=== PATIENT | male | born 1980 | race Caucasian/White ===

== ENCOUNTER 2022-08-20 07:38 | Emergency (ER) | payer OTHER ==
--- NOTE | 2022-08-20 08:00 | ERPHSYRPT ---
- History of Present Illness Time Seen by Provider: 08/20/22 07:50 Source: patient Exam Limitations: no limitations Patient Subjective Stated Complaint: PT states "I was at work and I broke out into a sweat, I collapsed and my whole body hurt. My head is killing me and I just do not feel right." Triage Nursing Assessment: PT presented alert and oriented X 3, skin pwd. Pt ambulates with an upright steady gait, able to speak in clear full sentences pt in no apparent respiratory distress. Physician History: This is a 42-year-old white male patient who stated that yesterday approximately 2 PM he began feeling oddly during sexual intercourse. Later in the day his symptoms progressed to include generalized numbness and he "passed out" at work. Since that episode at work he has had a headache that is not resolved. He does not have neck pain. He continues to feel numb all over. He has not had any fever or chills or flulike symptoms. He denies using illicit drugs. He denies any prescription medication use. He has no known drug allergies. He has never had episodes like this in the past. He denies chest pain. He denies shortness of breath. The light hurts his eyes and so he is in the emergency department room with his eyes closed. He denies any head injury. Timing/Duration: yesterday Severity: moderate Character of Deficits: none Deficits: no difficulties Baseline/Normal Cognition: alert oriented x 3 Current Cognition: alert oriented x 3 Baseline Gait: walks w/o assistance Associated Symptoms: numbness/tingling in legs/feet (Generalized), other (Right sensitivity), No loss of consciousness, No seizures, No slurred speech Allergies/Adverse Reactions: No Known Drug Allergies Allergy (Verified 08/20/22 07:50) Home Medications: No Reportable Medications [No Reported Medications] 08/20/22 [History] Hx Tetanus, Diphtheria Vaccination/Date Given: No Hx Influenza Vaccination/Date Given: Yes Hx Pneumococcal Vaccination/Date Given: No Immunizations Up to Date: Yes Travel Risk - International Travel Have you traveled outside of the country in past 3 weeks: No - Coronavirus Screening Are you exhibiting any of the following symptoms?: Yes Symptoms: Headaches/Body Aches/Fatigue Close contact with a COVID-19 positive Pt in past 14-21 Days: No - Vaccine Status Have you recieved a Covid-19 vaccination: No - Review of Systems Constitutional: No Symptoms Eyes: Photophobia Ears, Nose, & Throat: No Symptoms Respiratory: No Symptoms Cardiac: No Symptoms Abdominal/Gastrointestinal: No Symptoms Genitourinary Symptoms: No Symptoms Musculoskeletal: No Symptoms Skin: No Symptoms Neurological: Headache, Parasthesia (Generalized) Endocrine: No Symptoms Hematologic/Lymphatic: No Symptoms Immunological/Allergic: No Symptoms All Other Systems: Reviewed and Negative - Past Medical History Pertinent Past Medical History: No - Past Surgical History Past Surgical History: Yes Other Surgical History: partial nephrectomy left kidney - Social History Smoking Status: Former smoker Exposure to second hand smoke: No Drug Use: none Patient Lives Alone: No - Nursing Vital Signs Nursing Vital Signs: Initial Vital Signs Temperature 97.8 F 08/20/22 07:44 Pulse Rate 92 H 08/20/22 07:44 Respiratory Rate 20 08/20/22 07:44 Blood Pressure 167/108 08/20/22 07:44 O2 Sat by Pulse Oximetry 98 08/20/22 07:44 Pain Scale Pain Intensity [Posterior 8 Generalized] Pain Intensity 5 - [place] Coma Scale Best Eye Response ([place]): (4) open spontaneously Best Verbal Response ([place]): (5) oriented Best Motor Response ([place]): (6) obeys commands [place] Total: 15 - Physical Exam General Appearance: mild distress, alert, anxiety Eye Exam: bilateral eye: normal inspection, PERRL, EOMI Ears, Nose, Throat Exam: normal ENT inspection, moist mucous membranes Neck Exam: normal inspection, non-tender, supple, full range of motion Respiratory: normal breath sounds, lungs clear, airway intact, No chest tenderness, No respiratory distress Cardiovascular: regular rate/rhythm, normal heart sounds, normal peripheral pulses Gastrointestinal: soft, normal bowel sounds, No tenderness Rectal Exam: not done Back Exam: normal inspection, normal range of motion, No CVA tenderness, No vertebral tenderness Extremity Exam: normal inspection, normal range of motion, pelvis stable Mental Status: alert, 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 There is no comparison twelve-lead EKG present) Ordered Tests: Active Orders 24 hr Category Date Time Status Marketing Intern STAT Care 08/20/22 08:00 Active Clean Catch Urine Specimen STAT Care 08/20/22 08:00 Active EKG-ER Only STAT Care 08/20/22 08:00 Active IV Insertion STAT Care 08/20/22 08:00 Active NPO (ED) STAT Care 08/20/22 08:00 Active Pulse Oximetry (ED) STAT Care 08/20/22 08:00 Active HEAD WITHOUT CONTRAST [CT] Stat Exams 08/20/22 08:00 Taken BLOOD CULTURE Stat Lab 08/20/22 08:50 Received CBC W DIFF Stat Lab 08/20/22 08:00 Completed CMP Stat Lab 08/20/22 08:00 Completed ETHYL ALCOHOL Stat Lab 08/20/22 08:01 Completed [place] Screen Stat Lab 08/20/22 08:30 Completed TROPONIN Q4H Lab 08/20/22 05:50 Completed TROPONIN Q4H Lab 08/20/22 14:15 Ordered TROPONIN Q4H Lab 08/20/22 18:15 Ordered TROPONIN Q4H Lab 08/20/22 22:15 Ordered UA W/RFX CULTURE Stat Lab 08/20/22 Results Urine Triage Profile Stat Lab 08/20/22 Completed Medication Summary Discontinued Medications Generic Name Dose Route Start Last Admin Trade Name Felicia PRN Reason Stop Dose Admin Acetaminophen 650 mg 08/20/22 08:59 08/20/22 09:00 Acetaminophen 325 Mg Tablet PO 08/20/22 09:00 650 mg STAT STA Administration Acetaminophen Confirm 08/20/22 08:59 Acetaminophen 325 Mg Tablet Administered 08/20/22 09:00 Dose 650 mg .ROUTE .STK-MED ONE Methylprednisolone Sodium 0 mg 08/20/22 10:37 08/20/22 10:47 Succinate 125 mg/ Sterile IV 08/20/22 10:38 125 mg Water 2 ml STAT ONE Administration Diphenhydramine HCl 25 mg 08/20/22 10:39 08/20/22 10:48 Diphenhydramine Hcl 50 Mg/Ml Vial IV 08/20/22 10:40 25 mg STAT ONE Administration Diphenhydramine HCl Confirm 08/20/22 10:46 Diphenhydramine Hcl 50 Mg/Ml Vial Administered 08/20/22 10:47 Dose 50 mg .ROUTE .STK-MED ONE Methylprednisolone Sodium Succinate Confirm 08/20/22 10:46 Methylprednis Sod Succ 125 Mg/2 Ml Vial Administered 08/20/22 10:47 Dose 125 mg .ROUTE .STK-MED ONE Morphine Sulfate 4 mg 08/20/22 09:03 08/20/22 09:14 Morphine Sulfate 4 Mg/Ml Injection IV 08/20/22 09:04 4 mg STAT ONE Administration Morphine Sulfate Confirm 08/20/22 09:13 Morphine Sulfate 4 Mg/Ml Injection Administered 08/20/22 09:14 Dose 4 mg .ROUTE .STK-MED ONE Morphine Sulfate 2 mg 08/20/22 10:36 08/20/22 10:48 Morphine Sulfate 2 Mg/Ml Inj IV 08/20/22 10:37 2 mg STAT ONE Administration Morphine Sulfate Confirm 08/20/22 10:46 Morphine Sulfate 2 Mg/Ml Inj Administered 08/20/22 10:47 Dose 2 mg .ROUTE .STK-MED ONE Ondansetron HCl 4 mg 08/20/22 09:03 08/20/22 09:14 Ondansetron Hcl 4 Mg/2 Ml Vial IV 08/20/22 09:04 4 mg STAT ONE Administration Ondansetron HCl Confirm 08/20/22 09:13 Ondansetron Hcl 4 Mg/2 Ml Vial Administered 08/20/22 09:14 Dose 4 mg .ROUTE .STK-MED ONE Sterile Water Confirm 08/20/22 10:46 Water For Injection,Sterile 10 Ml Vial Administered 08/20/22 10:47 Dose 10 ml IJ .STK-MED ONE Lab/Rad Data: Laboratory Result Diagrams 08/20/22 08:00 08/20/22 08:00 Laboratory Results 08/20/22 08/20/22 08/20/22 Range/Units Unknown Unknown Unknown WBC (4.0-10.5) x10^3/uL RBC (4.1-5.6) x10^6/uL Hgb (12.5-18.0) g/dL Hct (42-50) % MCV (78-100) fL MCH (26-32) pg MCHC (32-36) g/dL RDW (11.5-14.0) % Plt Count (150-450) x10^3/uL MPV (7.5-11.0) fL Gran % (36.0-66.0) % Immature Gran % (Auto) (0.00-0.4) % Nucleat RBC Rel Count (0.00-0.1) % Eos # (Auto) (0-0.5) x10^3/uL Immature Gran # (Auto) (0.00-0.03) x10^3u/L Absolute Lymphs (auto) (1.0-4.6) x10^3/uL Absolute Monos (auto) (0.0-1.3) x10^3/uL Absolute Nucleated RBC (0.00-0.01) x10^3u/L Lymphocytes % (24.0-44.0) % Monocytes % (0.0-12.0) % Eosinophils % (0.00-5.0) % Basophils % (0.0-0.4) % Absolute Granulocytes (1.4-6.9) x10^3/uL Basophils # (0-0.4) x10^3/uL Sodium (137-145) mmol/L Potassium (3.5-5.1) mmol/L Chloride (98-107) mmol/L Carbon Dioxide (22-30) mmol/L Anion Gap (5-15) MEQ/L BUN (9-20) mg/dL Creatinine (0.66-1.25) mg/dL Estimated GFR ML/MIN Glucose (74-106) mg/dL Calcium (8.4-10.2) mg/dL Total Bilirubin (0.2-1.3) mg/dL AST (17-59) U/L ALT (0-50) U/L Alkaline Phosphatase (38-126) U/L Troponin I (0.000-0.034) ng/mL Serum Total Protein (6.3-8.2) g/dL Albumin (3.5-5.0) g/dL Urinalys Dipstick Clnc Pending Urine Color YELLOW (YELLOW) Urine Appearance CLEAR (CLEAR) Urine pH 5.5 (5-6) Ur Specific [place] 1.020 (1.005-1.025) POC Urine Protein Conf NEGATIVE (Negative) Urine Ketones NEGATIVE (NEGATIVE) Urine Nitrite NEGATIVE (NEGATIVE) Urine Bilirubin NEGATIVE (NEGATIVE) Urine Urobilinogen NORMAL (0-1) mg/dL Urine Leukocytes NEGATIVE (NEGATIVE) Urine WBC (Auto) NONE SEEN (0-5) /HPF Urine RBC (Auto) NONE (0-2) /HPF U Epithel Cells (Auto) RARE (FEW) /HPF Urine Bacteria (Auto) NONE SEEN (NEGATIVE) /HPF Urine RBC NEGATIVE (0-5) Alfonso/ul Urine Mucus (Auto) SLIGHT (NEGATIVE) /HPF Ur Culture Indicated? NO Urine Glucose NEGATIVE (NEGATIVE) mg/dL Urine Opiates Level NEGATIVE (NEGATIVE) Ur Methadone NEGATIVE (NEGATIVE) Urine Barbiturates NEGATIVE (NEGATIVE) Ur Phencyclidine (PCP) NEGATIVE (NEGATIVE) Urine Amphetamine NEGATIVE (NEGATIVE) U Benzodiazepine Level NEGATIVE (NEGATIVE) Urine Cocaine NEGATIVE (NEGATIVE) Urine Marijuana (THC) NEGATIVE (NEGATIVE) Ethyl Alcohol (0-10) mg/dL Monoscreen (Negative) Influenza Type A Ag NEGATIVE (NEGATIVE) Influenza Type B Ag NEGATIVE (NEGATIVE) RSV (PCR) NEGATIVE (Negative) SARS-CoV-2 (PCR) NEGATIVE (NEGATIVE) 08/20/22 08/20/22 08/20/22 Range/Units 08:30 08:01 08:00 WBC (4.0-10.5) x10^3/uL RBC (4.1-5.6) x10^6/uL Hgb (12.5-18.0) g/dL Hct (42-50) % MCV (78-100) fL MCH (26-32) pg MCHC (32-36) g/dL RDW (11.5-14.0) % Plt Count (150-450) x10^3/uL MPV (7.5-11.0) fL Gran % (36.0-66.0) % Immature Gran % (Auto) (0.00-0.4) % Nucleat RBC Rel Count (0.00-0.1) % Eos # (Auto) (0-0.5) x10^3/uL Immature Gran # (Auto) (0.00-0.03) x10^3u/L Absolute Lymphs (auto) (1.0-4.6) x10^3/uL Absolute Monos (auto) (0.0-1.3) x10^3/uL Absolute Nucleated RBC (0.00-0.01) x10^3u/L Lymphocytes % (24.0-44.0) % Monocytes % (0.0-12.0) % Eosinophils % (0.00-5.0) % Basophils % (0.0-0.4) % Absolute Granulocytes (1.4-6.9) x10^3/uL Basophils # (0-0.4) x10^3/uL Sodium 139 (137-145) mmol/L Potassium 4.3 (3.5-5.1) mmol/L Chloride 103 (98-107) mmol/L Carbon Dioxide 27 (22-30) mmol/L Anion Gap 13.2 (5-15) MEQ/L BUN 12 (9-20) mg/dL Creatinine 0.93 (0.66-1.25) mg/dL Estimated GFR > 60.0 ML/MIN Glucose 99 (74-106) mg/dL Calcium 9.3 (8.4-10.2) mg/dL Total Bilirubin 1.20 (0.2-1.3) mg/dL AST 61 H (17-59) U/L ALT 91 H (0-50) U/L Alkaline Phosphatase 66 (38-126) U/L Troponin I (0.000-0.034) ng/mL Serum Total Protein 8.2 (6.3-8.2) g/dL Albumin 4.9 (3.5-5.0) g/dL Urinalys Dipstick Clnc Urine Color (YELLOW) Urine Appearance (CLEAR) Urine pH (5-6) Ur Specific [place] (1.005-1.025) POC Urine Protein Conf (Negative) Urine Ketones (NEGATIVE) Urine Nitrite (NEGATIVE) Urine Bilirubin (NEGATIVE) Urine Urobilinogen (0-1) mg/dL Urine Leukocytes (NEGATIVE) Urine WBC (Auto) (0-5) /HPF Urine RBC (Auto) (0-2) /HPF U Epithel Cells (Auto) (FEW) /HPF Urine Bacteria (Auto) (NEGATIVE) /HPF Urine RBC (0-5) Alfonso/ul Urine Mucus (Auto) (NEGATIVE) /HPF Ur Culture Indicated? Urine Glucose (NEGATIVE) mg/dL Urine Opiates Level (NEGATIVE) Ur Methadone (NEGATIVE) Urine Barbiturates (NEGATIVE) Ur Phencyclidine (PCP) (NEGATIVE) Urine Amphetamine (NEGATIVE) U Benzodiazepine Level (NEGATIVE) Urine Cocaine (NEGATIVE) Urine Marijuana (THC) (NEGATIVE) Ethyl Alcohol < 10 (0-10) mg/dL Monoscreen NEGATIVE (Negative) Influenza Type A Ag (NEGATIVE) Influenza Type B Ag (NEGATIVE) RSV (PCR) (Negative) SARS-CoV-2 (PCR) (NEGATIVE) 08/20/22 08/20/22 Range/Units 08:00 05:50 WBC 8.2 (4.0-10.5) x10^3/uL RBC 5.41 (4.1-5.6) x10^6/uL Hgb 17.1 (12.5-18.0) g/dL Hct 50.8 H (42-50) % MCV 93.9 (78-100) fL MCH 31.6 (26-32) pg MCHC 33.7 (32-36) g/dL RDW 11.9 (11.5-14.0) % Plt Count 297 (150-450) x10^3/uL MPV 10.5 (7.5-11.0) fL Gran % 59.2 (36.0-66.0) % Immature Gran % (Auto) 0.2 (0.00-0.4) % Nucleat RBC Rel Count 0.0 (0.00-0.1) % Eos # (Auto) 0.25 (0-0.5) x10^3/uL Immature Gran # (Auto) 0.02 (0.00-0.03) x10^3u/L Absolute Lymphs (auto) 2.17 (1.0-4.6) x10^3/uL Absolute Monos (auto) 0.86 (0.0-1.3) x10^3/uL Absolute Nucleated RBC 0.00 (0.00-0.01) x10^3u/L Lymphocytes % 26.6 (24.0-44.0) % Monocytes % 10.5 (0.0-12.0) % Eosinophils % 3.1 (0.00-5.0) % Basophils % 0.4 (0.0-0.4) % Absolute Granulocytes 4.84 (1.4-6.9) x10^3/uL Basophils # 0.03 (0-0.4) x10^3/uL Sodium (137-145) mmol/L Potassium (3.5-5.1) mmol/L Chloride (98-107) mmol/L Carbon Dioxide (22-30) mmol/L Anion Gap (5-15) MEQ/L BUN (9-20) mg/dL Creatinine (0.66-1.25) mg/dL Estimated GFR ML/MIN Glucose (74-106) mg/dL Calcium (8.4-10.2) mg/dL Total Bilirubin (0.2-1.3) mg/dL AST (17-59) U/L ALT (0-50) U/L Alkaline Phosphatase (38-126) U/L Troponin I < 0.012 (0.000-0.034) ng/mL Serum Total Protein (6.3-8.2) g/dL Albumin (3.5-5.0) g/dL Urinalys Dipstick Clnc Urine Color (YELLOW) Urine Appearance (CLEAR) Urine pH (5-6) Ur Specific [place] (1.005-1.025) POC Urine Protein Conf (Negative) Urine Ketones (NEGATIVE) Urine Nitrite (NEGATIVE) Urine Bilirubin (NEGATIVE) Urine Urobilinogen (0-1) mg/dL Urine Leukocytes (NEGATIVE) Urine WBC (Auto) (0-5) /HPF Urine RBC (Auto) (0-2) /HPF U Epithel Cells (Auto) (FEW) /HPF Urine Bacteria (Auto) (NEGATIVE) /HPF Urine RBC (0-5) Alfonso/ul Urine Mucus (Auto) (NEGATIVE) /HPF Ur Culture Indicated? Urine Glucose (NEGATIVE) mg/dL Urine Opiates Level (NEGATIVE) Ur Methadone (NEGATIVE) Urine Barbiturates (NEGATIVE) Ur Phencyclidine (PCP) (NEGATIVE) Urine Amphetamine (NEGATIVE) U Benzodiazepine Level (NEGATIVE) Urine Cocaine (NEGATIVE) Urine Marijuana (THC) (NEGATIVE) Ethyl Alcohol (0-10) mg/dL Monoscreen (Negative) Influenza Type A Ag (NEGATIVE) Influenza Type B Ag (NEGATIVE) RSV (PCR) (Negative) SARS-CoV-2 (PCR) (NEGATIVE) - Progress Progress: improved, pain not gone completely Progress Note: 08/20/22 10:21 CAT scan of the head without contrast shows no evidence of acute intracranial abnormality. Medical decision making: This patient presents with headache and states that his headache has improved but still present. There is no evidence of any acute intracranial abnormality on the CAT scan of the head without contrast. The remainder of his work-up, with the exception of mild elevation of the transaminases on his liver enzyme studies, is negative for any acute, emergent process. I will provide him with another dose of pain medicine. Patient is afebrile and there is no evidence of any acute infectious process. 08/20/22 11:23 Medical decision making: I did review this patient with Dr. Huan Gastelum. The patient is neurologically intact. After the infusion of intravenous steroid and Benadryl he states his headache is better but is slightly present. He has no chest pain. He is not short of breath. He is afebrile. He is white count is normal and the left shift is normal. I do not feel the patient needs an MRI of the brain. I do not feel this patient needs a lumbar puncture. Based on the information provided Dr. Gastelum he agrees. I will discharge the patient to home and he is to return to emergency department if symptoms recur or worsen. Even if he is feeling well, he is to follow-up with Dr. Mcgovern in his office on 08/22/2022. Counseled pt/family regarding: lab results, diagnosis, need for follow-up, rad results - Departure Departure Disposition: Home Clinical Impression: Migraine headache Condition: Stable Critical Care Time: No Referrals: SHELLIE MCGOVERN MD [Primary Care Provider] - Follow up/PCP as directed Additional Instructions: Drink plenty of fluids. Rest over the weekend. Do not exert yourself physically. Call Dr. Mcgovern's office on 08/22/2022 to make an appointment for further evaluation management. Return to the emergency department if symptoms recur or worsen. May take a daily baby aspirin. May use Tylenol, ibuprofen and Benadryl for headache control at home.
[2022-08-20 08:25] LABS: Epithelial Cells RARE /HPF (FEW); Mucus SLIGHT /HPF (NEGATIVE)
[2022-08-20 08:26] LABS: Appearance CLEAR (CLEAR); Bacteria NONE SEEN /HPF (NEGATIVE); Bilirubin NEGATIVE (NEGATIVE); Glucose NEGATIVE (NEGATIVE); Ketones NEGATIVE (NEGATIVE); Nitrite NEGATIVE (NEGATIVE); Ph 5.5 (5-6); Protein,Urine Dip NEGATIVE (Negative); RBC NEGATIVE Ery/ul (0-5); Urine Cultured Indicated? NO; Urobilinogen NORMAL mg/dL (0-1); WBC NONE SEEN /HPF (0-5)
[2022-08-20 08:28] LABS: Barbiturate,Urine NEGATIVE (NEGATIVE); Benzodiazepine,Urine NEGATIVE (NEGATIVE); Cocaine,Urine NEGATIVE (NEGATIVE); Methadone,Urine NEGATIVE (NEGATIVE); PCP,Urine NEGATIVE (NEGATIVE); THC,Urine NEGATIVE (NEGATIVE)
[2022-08-20 08:31] LABS: Absolute Neutrophil Ct (ANC) 4.84 x10^3/uL (1.4-6.9); Basophil (Absolute #) 0.03 x10^3/uL (0-0.4); Eosinophil % 3.1 % (0.00-5.0); Eosinophil (Absolute #) 0.25 x10^3/uL (0-0.5); Hematocrit 50.8 % (42-50); Hemoglobin 17.1 g/dL (12.5-18.0); Lymphocyte (Absolute #) 2.17 x10^3/uL (1.0-4.6); Lymphocytes % 26.6 % (24.0-44.0); Mean Cell Volume 93.9 fL (78-100); Mean Corpuscular Hemoglobin 31.6 pg (26-32); Mean Corpuscular Hgb Concent. 33.7 g/dL (32-36); Mean Platelet Volume 10.5 fL (7.5-11.0); Monocyte (Absolute #) 0.86 x10^3/uL (0.0-1.3); Monocytes % 10.5 % (0.0-12.0); Neutrophil % 59.2 % (36.0-66.0); Platelet Count 297 x10^3/uL (150-450); Red Blood Count 5.41 x10^6/uL (4.1-5.6); Red Cell Distribution Width 11.9 % (11.5-14.0); White Blood Count 8.2 x10^3/uL (4.0-10.5)
[2022-08-20 08:33] LABS: Amphetamine,Urine NEGATIVE (NEGATIVE); Opiate,Urine NEGATIVE (NEGATIVE)
[2022-08-20 08:47] LABS: ALBUMIN 4.9 g/dL (3.5-5.0); ALKALINE PHOSPHATASE 66 U/L (38-126); ANION GAP 13.2 MEQ/L (5-15); BLOOD UREA NITROGEN 12 mg/dL (9-20); CHLORIDE 103 mmol/L (98-107); Calcium 9.3 mg/dL (8.4-10.2); Carbon Dioxide 27 mmol/L (22-30); Creatinine 1 0.93 mg/dL (0.66-1.25); EST GLOMERULAR FILTRATION RATE > 60.0 ML/MIN; Glucose 99 mg/dL (74-106); Potassium 4.3 mmol/L (3.5-5.1); SGOT/AST 61 U/L (17-59); SGPT/ALT 91 U/L (0-50); SODIUM 139 mmol/L (137-145); Total Protein 8.2 g/dL (6.3-8.2)
[2022-08-20] MEDS ORDERED: TYLENOL 325 MG ONE (08:59)
[2022-08-20] MEDS ORDERED: TYLENOL 325 MG PO STA (08:59)
[2022-08-20] MEDS ORDERED: Zofran 4 MG/2 ML VIAL IV ONE (09:03)
[2022-08-20] MEDS ORDERED: MORPHINE SULFATE 4 MG INJ IV ONE (09:03)
[2022-08-20] MEDS ORDERED: MORPHINE SULFATE 4 MG INJ ONE (09:13)
[2022-08-20] MEDS ORDERED: Zofran 4 MG/2 ML VIAL ONE (09:13)
[2022-08-20 09:25] LABS: INFLUENZA A NEGATIVE (NEGATIVE); INFLUENZA B NEGATIVE (NEGATIVE); RESPIRATORY SYNCTIAL VIRUS NEGATIVE (Negative); SARS-CoV-2 Xpert Express NEGATIVE (NEGATIVE)
[2022-08-20] MEDS ORDERED: MORPHINE SULFATE 2 MG INJ IV ONE (10:36)
[2022-08-20] MEDS ORDERED: solu-MEDROL 125 MG, Sterile H2O 10 ml 2 ML IV ONE ×2 (10:37)
[2022-08-20] MEDS ORDERED: BENADRYL 50 MG/ML IV ONE (10:39)
[2022-08-20] MEDS ORDERED: solu-MEDROL ONE (10:46)
[2022-08-20] MEDS ORDERED: BENADRYL 50 MG/ML ONE (10:46)
[2022-08-20] MEDS ORDERED: Sterile H2O 10 ml IJ ONE (10:46)
[2022-08-20] MEDS ORDERED: MORPHINE SULFATE 2 MG INJ ONE (10:46)
[2022-08-20 11:30] VITALS: BP 123/99; PULSE 66; O2SAT 94
[2022-08-20 18:13] LABS: Dipstick done @ ? MAIN LAB
--- NOTE | 2022-08-20 19:58 | XRAY ---
Indication: Severe headache. No known injury. Multiple contiguous axial images obtained through the head without contrast. Comparison: None Normal appearing brain parenchyma, ventricles, and bony calvarium. Visualized paranasal sinuses and mastoid air cells are clear. Impression: Normal CT head without contrast exam. Comment: Preliminary interpretation made by [facility]. No critical discrepancy.
== END 2022-08-20 11:39 | disposition home or self-care (01) ==
LOC: ED 07:38
DX: G43.909 Migraine, unspecified, not intractable, without status migrainosus (principal); R20.0 Anesthesia of skin; H53.143 Visual discomfort, bilateral; Z28.310 Unvaccinated for COVID-19
CPT/HCPCS: 0241U; 36415; 70450; 80053; 80307; 81015; 84484; 85025; 86308; 87040; 93005; 93041; 94760; 96374; 96375; 99284; J1200; J2270; J2405; J2930; A9270-GY; G0480

== ENCOUNTER 2023-06-18 21:55 | Emergency (ER) | payer OTHER ==
[2023-06-18] MEDS ORDERED: Hydromorphone 1 mg/ml Injection SQ ONE ×2 (22:13→23:42)
[2023-06-18] MEDS ORDERED: TORAdol 30 mg Injection IM ONE (22:13)
[2023-06-18 22:19] VITALS: RESP 18; TEMP 98.2
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
[2023-06-18] MEDS ORDERED: Hydromorphone 1 mg/ml Injection ONE (22:32)
[2023-06-18] MEDS ORDERED: TORAdol 30 mg Injection ONE (22:32)
[2023-06-18 23:50] VITALS: O2SAT 97
[2023-06-19] MEDS ORDERED: Hydromorphone 1 mg/ml Injection ONE (00:37)
[2023-06-19 00:48] VITALS: BP 150/101; PULSE 86
--- NOTE | 2023-06-19 08:46 | XRAY ---
Indication: Pain following injury. Comparison: None 3 view left knee demonstrates minimal medial joint space narrowing, tiny spurring patella/tibial tuberosity, and tiny medial condyle bone island. No other bony, articular, or soft tissue abnormalities.
== END 2023-06-19 00:51 | disposition home or self-care (01) ==
LOC: ED 21:55
DX: S83.412A Sprain of medial collateral ligament of left knee, initial encounter (principal); V86.56XA Driver of dirt bike or motor/cross bike injured in nontraffic accident, initial encounter; R03.0 Elevated blood-pressure reading, without diagnosis of hypertension; Z28.310 Unvaccinated for COVID-19; Z79.891 Long term (current) use of opiate analgesic
CPT/HCPCS: 73562; 96372; 99283; J1170; J1885

== ENCOUNTER 2024-03-20 12:40 | Emergency (ER) | payer OTHER ==
[2024-03-20 13:01] VITALS: TEMP 98.7
[2024-03-20] MEDS ORDERED: Hydromorphone 1 mg/ml Injection ONE (13:24)
[2024-03-20] MEDS: Hydromorphone 1 mg/ml Injection IM ONE (13:26)
[2024-03-20] MEDS ORDERED: EMLA Cream 5 GM TP ONE ×2 (13:56→16:22)
--- NOTE | 2024-03-20 13:57 | XRAY ---
Indication: Foreign body. Comparison: None 3 projections penis negative for radiopaque foreign body or emphysema.
[2024-03-20] MEDS: EMLA Cream 5 GM TP ONE ×2 (14:04→16:23)
[2024-03-20] MEDS ORDERED: TORAdol 30 mg Injection ONE (14:09)
[2024-03-20] MEDS ORDERED: XYLOCAINE 1% HCL 20 ML MDV ONE (14:10)
[2024-03-20] MEDS ORDERED: Rocephin 1000 MG INJ ONE (14:10)
[2024-03-20] MEDS: Rocephin 1000 MG INJ IM ONE (14:13)
[2024-03-20] MEDS: TORAdol 30 mg Injection IM ONE (14:14)
--- NOTE | 2024-03-20 14:57 | XRAY ---
Indication: Foreign body. Targeted soft tissue ultrasound over penis is negative for focal solid/cystic mass or abnormal fluid collection.
[2024-03-20 15:48] VITALS: BP 146/85; PULSE 62; RESP 18; O2SAT 98
--- NOTE | 2024-03-20 15:57 | ERPHSYRPT ---
- History of Present Illness Time Seen by Provider: 03/20/24 13:00 Source: patient Exam Limitations: no limitations Patient Subjective Stated Complaint: Penile pain Triage Nursing Assessment: Patient ambulated back to ED and transferred self to bed. Patient A+O X 3. Patient's skin pink, warm and dry. Patient states yesterday he started having itching to the right side of the shaft of his penis. Today he stated there was a small pustule and when he messed with it he noticed a fine strand of an object sticking out. Patient states he attempted to pull it out, but it is very painful. Patient complains of pain 08/08. Physician History: Patient is a 44-year-old white male who developed an itch on the right side of his penis and when he scratched the area he noted what appeared to be a small pustule or pimple. When he put pressure on that and tried to pull it off it came off and there was a strand of tissue that came from the wound for distance of approximately an inch at that point it stopped coming from the wound and caused a pulling sensation in the more proximal part of the penis and great pain. Timing/Duration: today Activites at Onset: none Quality: sharpness, throbbing Onset Location: other (Right side of the shaft of the penis) Pain Radiation: none Severity of Pain-Max: moderate Severity of Pain-Current: moderate Modifying Factors: Improves With: urinating Prior abdominal problems: none Allergies/Adverse Reactions: No Known Drug Allergies Allergy (Verified 03/20/24 12:53) Hx Tetanus, Diphtheria Vaccination/Date Given: Yes Hx Influenza Vaccination/Date Given: Yes Hx Pneumococcal Vaccination/Date Given: No Immunizations Up to Date: Yes Travel Risk - International Travel Have you traveled outside of the country in past 3 weeks: No - Emerging Infectious Disease Are you exhibiting symptoms associated with any current EIDs: No - Past Medical History Pertinent Past Medical History: No Neurological History: No Pertinent History ENT History: No Pertinent History Cardiac History: Hypertension Respiratory History: No Pertinent History Endocrine Medical History: Other Musculoskeletal History: Other GI Medical History: No Pertinent History History: Kidney Cancer Psycho-Social History: No Pertinent History Male Reproductive Disorders: No Pertinent History Other Medical History: STAGE 2 RENAL CELL CA WITH PARTIAL NEPHRECTOMY 13 YEARS AGO. NO CHEMO OR RADIATION - Past Surgical History Past Surgical History: Yes Neuro Surgical History: No Pertinent History Cardiac: No Pertinent History Respiratory: No Pertinent History Gastrointestinal: No Pertinent History Genitourinary: Kidney Surgery Musculoskeletal: No Pertinent History Male Surgical History: No Pertinent History Other Surgical History: partial nephrectomy left kidney - Social History Smoking Status: Former smoker Exposure to second hand smoke: No Drug Use: none Patient Lives Alone: No - Review of Systems Constitutional: No Fever, No Chills Eyes: No Symptoms Ears, Nose, & Throat: No Symptoms Respiratory: No Cough, No Dyspnea Cardiac: No Chest Pain, No Edema, No Syncope Abdominal/Gastrointestinal: No Abdominal Pain, No Nausea, No Vomiting, No Diarrhea Genitourinary Symptoms: Other (Right side of the penis has a small area of skin disruption and a tissue like strand which Protrudes from the wound.), No Dysuria Musculoskeletal: No Back Pain, No Neck Pain Skin: No Rash Neurological: No Dizziness, No Focal Weakness, No Sensory Changes Psychological: No Symptoms Endocrine: No Symptoms All Other Systems: Reviewed and Negative - Nursing Vital Signs Nursing Vital Signs: Initial Vital Signs Temperature 98.7 F 03/20/24 12:57 Pulse Rate 70 03/20/24 12:57 Respiratory Rate 20 03/20/24 12:57 Blood Pressure 163/96 03/20/24 12:57 O2 Sat by Pulse Oximetry 97 03/20/24 12:57 Pain Scale Pain Intensity 0 - Physical Exam General Appearance: mild distress, alert Eye Exam: PERRL/EOMI Ears, Nose, Throat Exam: pharynx normal, moist mucous membranes Neck Exam: normal inspection, supple Respiratory Exam: normal breath sounds, lungs clear Cardiovascular Exam: regular rate/rhythm, No edema Gastrointestinal/Abdomen Exam: soft, No tenderness Male Genital Exam: lesions (Right side of the penis shows a small area where there is been a pustular like lesion pulled off and when removed from the area of brought with her today's strand of tissue.) Back Exam: normal inspection, No CVA tenderness Extremity Exam: normal inspection, normal range of motion, No pedal edema Neurologic Exam: alert, oriented x 3, cooperative, sensation nml, No motor deficits Skin Exam: normal color, warm, dry, No rash SpO2 Interpretation: normal SpO2: 98 O2 Delivery: Room Air - Course Nursing assessment & vital signs reviewed: Yes - Radiology Exams Pelvis X-ray Interpretation: Reviewed by me, Other (No abnormality noted) - Radiology Ultrasound Exam Pelvis Ultrasound: Other Ordered Tests: Active Orders 24 hr Category Date Time Status EXTREMITY NON VASCULAR [US] Stat Exams 03/20/24 13:58 Completed PELVIS (1 OR 2 VIEWS) Stat Exams 03/20/24 13:16 Completed Medication Summary Discontinued Medications Generic Name Dose Route Start Last Admin Trade Name Felicia PRN Reason Stop Dose Admin Ceftriaxone Sodium 1,000 mg 03/20/24 14:04 03/20/24 14:13 Ceftriaxone Sodium 1000 Mg Inj Vial IM 03/20/24 14:05 1,000 mg STAT ONE Administration Ceftriaxone Sodium Confirm 03/20/24 14:10 Ceftriaxone Sodium 1000 Mg Inj Vial Administered 03/20/24 14:11 Dose 1,000 mg .ROUTE .STK-MED ONE Hydromorphone HCl 1 mg 03/20/24 13:22 03/20/24 13:26 Hydromorphone 1 Mg/1ml Inj IM 03/20/24 13:23 1 mg STAT ONE Administration Hydromorphone HCl Confirm 03/20/24 13:24 Hydromorphone 1 Mg/1ml Inj Administered 03/20/24 13:25 Dose 1 mg .ROUTE .STK-MED ONE Ketorolac Tromethamine 60 mg 03/20/24 14:04 03/20/24 14:14 Ketorolac Tromethamine 30 Mg/Ml Inj IM 03/20/24 14:05 60 mg STAT ONE Administration Ketorolac Tromethamine Confirm 03/20/24 14:09 Ketorolac Tromethamine 30 Mg/Ml Inj Administered 03/20/24 14:10 Dose 60 mg .ROUTE .STK-MED ONE Lidocaine HCl Confirm 03/20/24 14:10 Lidocaine Hcl 1% 20 Ml Mdv 20 Ml Ml Administered 03/20/24 14:11 Dose 3 ml .ROUTE .STK-MED ONE Lidocaine/Prilocaine Confirm 03/20/24 13:56 Lidocaine/Prilocaine 5 Gm 5 Gm Tube Administered 03/20/24 13:57 Dose 5 gm TP .STK-MED ONE Lidocaine/Prilocaine 2.5 gm 03/20/24 13:58 03/20/24 14:04 Lidocaine/Prilocaine 5 Gm 5 Gm Tube TP 03/20/24 13:59 2.5 gm STAT ONE Administration - Progress Progress: unchanged Progress Note: 03/20/24 15:57 Discussed the situation with the midlevel of . [facility] Arrangements were worried for an office visit tomorrow at 1115. Medical Desision Making - Independent Historian Additional History obtained from: Spouse - Discussion of managment Care discussed with:: specialist (Urology office [facility]) - Diagnostic Testing Diagnostic test were ordered, analyzed, and reviewed by me: Yes Radiological Interpretation: Reviewed by me - Departure Departure Disposition: Home Clinical Impression: Penile cyst Condition: Stable Critical Care Time: No Referrals: AKBAR CHRISTIAN, [employer] [Primary Care Provider] - Follow up/PCP as directed Instructions: Epidermal Cyst
[2024-03-20] MEDS ORDERED: NORCO 5/325 MG ONE (16:13)
[2024-03-20] MEDS: NORCO 5/325 MG PO ONE (16:19)
== END 2024-03-20 16:30 | disposition home or self-care (01) ==
LOC: ED 12:40
DX: N48.89 Other specified disorders of penis (principal); I10 Essential (primary) hypertension
CPT/HCPCS: 72170; 76881; 96372; 99284; J0696; J1170; J1885; A9270-GY

== ENCOUNTER 2024-04-06 00:21 | Emergency (ER) | payer OTHER ==
--- NOTE | 2024-04-06 00:25 | ERPHSYRPT ---
- History of Present Illness Source: patient, old records, police Exam Limitations: no limitations Timing/Duration: today Suicidal thoughts: gesture, other (Apparently, per law enforcement, video was made where he was discussing thoughts of suicide) Associated Symptoms: suicidal ideation Previous symptoms: no prior history, no recent treatment Hx Tetanus, Diphtheria Vaccination/Date Given: Yes Hx Influenza Vaccination/Date Given: Yes Hx Pneumococcal Vaccination/Date Given: No <LEAH PATEL - Last Filed: 04/06/24 06:24> - History of Present Illness Context related to: spouse <CAROLANN CHANG - Last Filed: 04/06/24 09:42> - History of Present Illness Time Seen by Provider: 04/06/24 00:24 Physician History: This is a 44-year-old white male patient brought into the emergency department by law enforcement secondary to concerns of this patient having suicidal thoughts and gestures. Earlier today, this patient was in argument with his spouse and ended up leaving the home with a gun and making comments regarding threats of suicide. According to police officers the patient also made a video discussing suicide. Patient was brought into the emergency department from a hotel room that he was staying in. Currently, the patient is denying any suicidal thoughts or ideation. Patient denies having any homicidal thoughts or ideation. Patient has no complaints of headache pain. He has no complaints of abdominal pain. He has no complaints of chest pain. He has a history of COPD and hypertension. (LEAH PATEL) Allergies/Adverse Reactions: No Known Drug Allergies Allergy (Verified 04/06/24 00:27) Home Medications: Losartan Potassium 50 mg [Cozaar 50 MG] 100 mg PO DAILY 04/06/24 [History] Montelukast Sodium 10 mg [Singulair 10 MG] 10 mg PO DAILY 04/06/24 [History] armodafiniL [Armodafinil] 200 mg PO DAILY 04/06/24 [History] Travel Risk - International Travel Have you traveled outside of the country in past 3 weeks: No - Emerging Infectious Disease Are you exhibiting symptoms associated with any current EIDs: No <LEAH PATEL - Last Filed: 04/06/24 06:24> - Past Medical History Pertinent Past Medical History: No Neurological History: No Pertinent History ENT History: No Pertinent History Cardiac History: Hypertension Respiratory History: No Pertinent History Endocrine Medical History: Other Musculoskeletal History: Other GI Medical History: No Pertinent History History: Kidney Cancer Psycho-Social History: No Pertinent History Male Reproductive Disorders: No Pertinent History Other Medical History: STAGE 2 RENAL CELL CA WITH PARTIAL NEPHRECTOMY 13 YEARS AGO. NO CHEMO OR RADIATION - Past Surgical History Past Surgical History: Yes Neuro Surgical History: No Pertinent History Cardiac: No Pertinent History Respiratory: No Pertinent History Gastrointestinal: No Pertinent History Genitourinary: Kidney Surgery Musculoskeletal: No Pertinent History Male Surgical History: No Pertinent History Other Surgical History: partial nephrectomy left kidney - Social History Smoking Status: Former smoker Exposure to second hand smoke: No Drug Use: none Patient Lives Alone: No - Social Determinants of Health Will the patient participate in the screening: Yes Do you worry about a steady place to live?: No In the past 12 months,have you had to go without utilities?: No Transportation Issues: No Has anyone in your support network made you feel unsafe?: No Have you or anyone in your house had to go without enough: No <LEAH PATEL - Last Filed: 04/06/24 06:24> - Review of Systems Constitutional: No Symptoms Eyes: No Symptoms Ears, Nose, & Throat: No Symptoms Respiratory: No Symptoms Cardiac: No Symptoms Abdominal/Gastrointestinal: No Symptoms Genitourinary Symptoms: No Symptoms Musculoskeletal: No Symptoms Skin: No Symptoms Neurological: No Symptoms, Vertigo Psychological: Suicidal Ideations, No Homicidal Ideations, No Emotional Lability, No Hallucinations, No Memory Loss Endocrine: No Symptoms Hematologic/Lymphatic: No Symptoms Immunological/Allergic: No Symptoms All Other Systems: Reviewed and Negative <LEAH PATEL - Last Filed: 04/06/24 06:24> - Physical Exam General Appearance: no apparent distress, alert, anxiety Eyes, Ears, Nose, Throat Exam: normal ENT inspection, moist mucous membranes Neck Exam: normal inspection, non-tender, supple, full range of motion Respiratory Exam: normal breath sounds, lungs clear, airway intact, No chest tenderness, No respiratory distress Cardiovascular Exam: regular rate/rhythm, normal heart sounds, normal peripheral pulses Gastrointestinal/Abdominal Exam: soft, normal bowel sounds, No tenderness Current Suicidality: denies suicide plan Neurological Exam: alert, normal mood/affect, calm, purchasing coordinator II-XII nml as tested, oriented x 3 Appearance: appropriate appearance, appropriate insight, no memory impairment Behavior/Eye Contact/Speech: alert & cooperative, good eye contact, normal speech Thoughts/Hallucinations: normal thought pattern, no apparent hallucination Skin Exam: normal color, warm, dry SpO2 Interpretation: normal O2 Delivery: Room Air <LEAH PATEL - Last Filed: 04/06/24 06:24> - Nursing Vital Signs Nursing Vital Signs: Initial Vital Signs Temperature 97.9 F 04/06/24 00:21 Pulse Rate 89 04/06/24 00:21 Respiratory Rate 18 04/06/24 00:21 Blood Pressure 139/94 04/06/24 00:21 O2 Sat by Pulse Oximetry 95 04/06/24 00:21 Pain Scale Pain Intensity 0 - Course Nursing assessment & vital signs reviewed: Yes EKG Interpreted by Me: RATE (83), Sinus Rhythm, NORMAL AXIS, NORMAL INTERVALS, NORMAL QRS, NORMAL ST-T, Other (No acute ischemic changes on today's twelve-lead EKG) <LEAH PATEL - Last Filed: 04/06/24 06:24> Ordered Tests: Active Orders 24 hr Category Date Time Status Clean Catch Urine Specimen STAT Care 04/06/24 00:48 Active EKG-ER Only STAT Care 04/06/24 00:48 Active ACETAMINOPHEN Stat Lab 04/06/24 01:03 Completed CBC W DIFF Stat Lab 04/06/24 01:03 Completed CMP Stat Lab 04/06/24 01:03 Completed ETHYL ALCOHOL Stat Lab 04/06/24 01:03 Completed ETHYL ALCOHOL Stat Lab 04/06/24 06:01 Completed SALICYLATE Stat Lab 04/06/24 01:03 Completed UA W/RFX UR CULTURE Stat Lab 04/06/24 00:51 Completed Urine Triage Profile Stat Lab 04/06/24 00:51 Completed Lab/Rad Data: Laboratory Result Diagrams 04/06/24 01:03 04/06/24 01:03 Laboratory Results 04/06/24 04/06/24 04/06/24 Range/Units 06:01 01:03 01:03 WBC (4.23-9.07) x10^3/uL RBC (4.63-6.08) x10^6/uL Hgb (13.7-17.5) g/dL Hct (40.1-51.0) % MCV (79.0-92.2) fL MCH (25.7-32.2) pg MCHC (32.3-36.5) g/dL RDW (11.6-14.4) % Plt Count (163-337) x10^3/uL MPV (9.4-12.4) fL Gran % (34.0-67.9) % Immature Gran % (Auto) (0.001-0.429) % Nucleat RBC Rel Count (0.00-0.2) % Eos # (Auto) (0.04-0.54) x10^3/uL Immature Gran # (Auto) (0.001-0.031) x10^3u/L Absolute Lymphs (auto) (1.32-3.57) x10^3/uL Absolute Monos (auto) (0.30-0.82) x10^3/uL Absolute Nucleated RBC (0.00-0.012) x10^3u/L Lymphocytes % (21.8-53.1) % Monocytes % (5.3-12.2) % Eosinophils % (0.8-7.0) % Basophils % (0.2-1.2) % Absolute Granulocytes (1.78-5.38) x10^3/uL Basophils # (0.01-0.08) x10^3/uL Sodium 141 (135-145) mmol/L Potassium 4.0 (3.5-5.1) mmol/L Chloride 108 H (98-107) mmol/L Carbon Dioxide 19 L (22-30) mmol/L Anion Gap 19.0 H (5-15) MEQ/L BUN 8 L (9-20) mg/dL Creatinine 0.75 (0.66-1.25) mg/dL Estimated GFR 113.4 ML/MIN Glucose 113 H (74-106) mg/dL Calcium 9.6 (8.4-10.2) mg/dL Total Bilirubin 0.60 (0.2-1.3) mg/dL AST 51 (17-59) U/L ALT 89 H (0-50) U/L Alkaline Phosphatase 63 (38-126) U/L Serum Total Protein 8.4 H (6.3-8.2) g/dL Albumin 5.1 H (3.5-5.0) g/dL Urine Color (Yellow) Urine Appearance (Clear) Urine pH (4.6-8.0) Ur Specific [place] (1.005-1.030) Urine Protein (Negative) Urine Glucose (UA) (Negative) mg/dL Urine Ketones (Negative) Urine Blood (Negative) Urine Nitrite (Negative) Urine Bilirubin (Negative) Urine Urobilinogen (0.2) mg/dL Ur Leukocyte Esterase (Negative) U Hyaline Cast (Auto) (0-2) /LPF Urine Microscopic RBC (0-5) /HPF Urine Microscopic WBC (0-5) /HPF Ur Epithelial Cells (None Seen) /HPF Urine Bacteria (None Seen) /HPF Urine Culture Reflexed (NO) Salicylates < 1.0 L (2-20) mg/dL Urine Opiates Level (NEGATIVE) Ur Methadone (NEGATIVE) Acetaminophen < 10 L (10-30) ug/ml Urine Barbiturates (NEGATIVE) Ur Phencyclidine (PCP) (NEGATIVE) Urine Amphetamine (NEGATIVE) U Benzodiazepine Level (NEGATIVE) Urine Cocaine (NEGATIVE) Urine Marijuana (THC) (NEGATIVE) Ethyl Alcohol 90 H 176 H (0-10) mg/dL Influenza Type A Ag NEGATIVE (NEGATIVE) Influenza Type B Ag NEGATIVE (NEGATIVE) RSV (PCR) NEGATIVE (NEGATIVE) SARS-CoV-2 (PCR) NEGATIVE (NEGATIVE) 04/06/24 04/06/24 04/06/24 Range/Units 01:03 00:51 00:51 WBC 8.5 (4.23-9.07) x10^3/uL RBC 4.95 (4.63-6.08) x10^6/uL Hgb 16.0 (13.7-17.5) g/dL Hct 45.9 (40.1-51.0) % MCV 92.7 H (79.0-92.2) fL MCH 32.3 H (25.7-32.2) pg MCHC 34.9 (32.3-36.5) g/dL RDW 11.9 (11.6-14.4) % Plt Count 319 (163-337) x10^3/uL MPV 9.9 (9.4-12.4) fL Gran % 68.9 H (34.0-67.9) % Immature Gran % (Auto) 0.4 (0.001-0.429) % Nucleat RBC Rel Count 0.0 (0.00-0.2) % Eos # (Auto) 0.06 (0.04-0.54) x10^3/uL Immature Gran # (Auto) 0.03 (0.001-0.031) x10^3u/L Absolute Lymphs (auto) 1.98 (1.32-3.57) x10^3/uL Absolute Monos (auto) 0.55 (0.30-0.82) x10^3/uL Absolute Nucleated RBC 0.00 (0.00-0.012) x10^3u/L Lymphocytes % 23.2 (21.8-53.1) % Monocytes % 6.4 (5.3-12.2) % Eosinophils % 0.7 L (0.8-7.0) % Basophils % 0.4 (0.2-1.2) % Absolute Granulocytes 5.89 H (1.78-5.38) x10^3/uL Basophils # 0.03 (0.01-0.08) x10^3/uL Sodium (135-145) mmol/L Potassium (3.5-5.1) mmol/L Chloride (98-107) mmol/L Carbon Dioxide (22-30) mmol/L Anion Gap (5-15) MEQ/L BUN (9-20) mg/dL Creatinine (0.66-1.25) mg/dL Estimated GFR ML/MIN Glucose (74-106) mg/dL Calcium (8.4-10.2) mg/dL Total Bilirubin (0.2-1.3) mg/dL AST (17-59) U/L ALT (0-50) U/L Alkaline Phosphatase (38-126) U/L Serum Total Protein (6.3-8.2) g/dL Albumin (3.5-5.0) g/dL Urine Color Yellow (Yellow) Urine Appearance Clear (Clear) Urine pH 6.0 (4.6-8.0) Ur Specific [place] <=1.005 (1.005-1.030) Urine Protein Negative (Negative) Urine Glucose (UA) Negative (Negative) mg/dL Urine Ketones Negative (Negative) Urine Blood Negative (Negative) Urine Nitrite Negative (Negative) Urine Bilirubin Negative (Negative) Urine Urobilinogen 0.2 (0.2) mg/dL Ur Leukocyte Esterase Negative (Negative) U Hyaline Cast (Auto) NONE SEEN (0-2) /LPF Urine Microscopic RBC 0-2 (0-5) /HPF Urine Microscopic WBC 0-2 (0-5) /HPF Ur Epithelial Cells None Seen (None Seen) /HPF Urine Bacteria None Seen (None Seen) /HPF Urine Culture Reflexed NO (NO) Salicylates (2-20) mg/dL Urine Opiates Level NEGATIVE (NEGATIVE) Ur Methadone NEGATIVE (NEGATIVE) Acetaminophen (10-30) ug/ml Urine Barbiturates NEGATIVE (NEGATIVE) Ur Phencyclidine (PCP) NEGATIVE (NEGATIVE) Urine Amphetamine NEGATIVE (NEGATIVE) U Benzodiazepine Level NEGATIVE (NEGATIVE) Urine Cocaine NEGATIVE (NEGATIVE) Urine Marijuana (THC) NEGATIVE (NEGATIVE) Ethyl Alcohol (0-10) mg/dL Influenza Type A Ag (NEGATIVE) Influenza Type B Ag (NEGATIVE) RSV (PCR) (NEGATIVE) SARS-CoV-2 (PCR) (NEGATIVE) - Progress Progress: unchanged Counseled pt/family regarding: lab results, diagnosis <LEAH PATEL - Last Filed: 04/06/24 06:24> - Progress Progress: improved, re-examined Counseled pt/family regarding: lab results, diagnosis, need for follow-up <CAROLANN CHANG - Last Filed: 04/06/24 09:42> - Progress Progress Note: 04/06/24 00:54 My medical decision making and the assignment of moderate complexity to this patient's medical issue today is based on review of the patient's past medical history, review of the patient's medication list, review of patient drug allergy list, history present illness and physical findings on examination. The workup today includes twelve-lead EKG, acetaminophen level, salicylate level, ethyl alcohol level, twelve-lead EKG, CBC, CMP, urinalysis and urine drug triage. We also performed viral studies. Differential diagnoses include but is not limited to suicidal ideation, anxiety/depression 04/06/24 06:24 I interpreted the patient's laboratory data results. There are no acute or emergent medical issues based on patient's laboratory data results. 04/06/24 06:39 I am transferring care of this patient to Dr. Carolann Chang at shift change. He will make final disposition of this patient after patient is evaluated by psychiatric services. 04/06/24 06:42 (LEAH PATEL) 04/06/24 07:27 Patient is received by me at change of shift after discussion of pending Psych consultation with patient and Dr. Patel and also that labs and Hx and exam reveals no other concerning conditions by his evaluation. The patient was required to wait in observation in ER with us until his blood alcohol had metabolized below the required level for the Psych evaluation 04/06/24 07:34 Dr. Patel reported that the firearm has been secured by law enforcement . 04/06/24 09:25 DIscussed again with Law Enforcement and there were no firearms with the patient and he is not under any emergency fpc and voluntarily submitted himself for evaluation. THe psych eval concluded that the patient is safe for release at this time. discussed with patient and he agrees with the safety plan from mental health evaluation and they have concluded that he is safe for release into his own custody and for follow-up with the mental health counselor of his choice in an outpt setting. He now is sober and has the capacity to make this choice and is advised of the potential risks should the ideations return and to seek immediate help. THe patient states that his brother is here to pick him up and they are traveling back to his home state in [place] and he will follow-up there. The patient is calm and with a normal mental status and has been cooperative and patient with the delays. He no longer has any suicidal ideations and states this was just an outburst and misunderstanding. He also expresses no homicidal ideations. He did leave however prior to collecting his paperwork and safety plan or signing this paperwork, but voiced his agreement with the plan and w illingness to follow-up as recommended. (CAROLANN CHANG) Medical Desision Making - Risk of complications Low Risk: Low risk of morbidity from additional dx testing or treatment <LEAH PATEL - Last Filed: 04/06/24 06:24> - Departure Departure Disposition: Transfer Critical Care Time: No <LEAH PATEL - Last Filed: 04/06/24 06:24> <CAROLANN CHANG - Last Filed: 04/06/24 09:42> - Departure Clinical Impression: Suicidal ideation Condition: Stable Referrals: [facility] [Primary Care Provider] - Follow up/PCP as directed
[2024-04-06 00:33] VITALS: TEMP 97.9
[2024-04-06 01:06] LABS: Absolute Neutrophil Ct (ANC) 5.89 x10^3/uL (1.78-5.38); BASOPHIL % 0.4 % (0.2-1.2); Basophil (Absolute #) 0.03 x10^3/uL (0.01-0.08); Eosinophil % 0.7 % (0.8-7.0); Eosinophil (Absolute #) 0.06 x10^3/uL (0.04-0.54); Hematocrit 45.9 % (40.1-51.0); IMMATURE GRAN # 0.03 x10^3u/L (0.001-0.031); IMMATURE GRAN % 0.4 % (0.001-0.429); Lymphocyte (Absolute #) 1.98 x10^3/uL (1.32-3.57); Lymphocytes % 23.2 % (21.8-53.1); Mean Cell Volume 92.7 fL (79.0-92.2); Mean Corpuscular Hemoglobin 32.3 pg (25.7-32.2); Mean Corpuscular Hgb Concent. 34.9 g/dL (32.3-36.5); Mean Platelet Volume 9.9 fL (9.4-12.4); Monocyte (Absolute #) 0.55 x10^3/uL (0.30-0.82); Monocytes % 6.4 % (5.3-12.2); Neutrophil % 68.9 % (34.0-67.9); Platelet Count 319 x10^3/uL (163-337); Red Blood Count 4.95 x10^6/uL (4.63-6.08); Red Cell Distribution Width 11.9 % (11.6-14.4); White Blood Count 8.5 x10^3/uL (4.23-9.07)
[2024-04-06 01:14] LABS: Appearance Clear (Clear); Bacteria None Seen /HPF (None Seen); Bilirubin Negative (Negative); Blood Negative (Negative); Epithelial Cells None Seen /HPF (None Seen); Glucose, Urine Negative (Negative); Hyaline Casts NONE SEEN /LPF (0-2); Ketones Negative (Negative); Leukocyte Esterase Negative (Negative); Nitrite Negative (Negative); Protein,Urine Dip Negative (Negative); RBC 0-2 /HPF (0-5); Specific Gravity <=1.005 (1.005-1.030); Urobilinogen 0.2 mg/dL (0.2); WBC 0-2 /HPF (0-5)
[2024-04-06 01:18] LABS: ACETAMINOPHEN < 10 ug/ml (10-30); ALBUMIN 5.1 g/dL (3.5-5.0); ALKALINE PHOSPHATASE 63 U/L (38-126); BLOOD UREA NITROGEN 8 mg/dL (9-20); CHLORIDE 108 mmol/L (98-107); Calcium 9.6 mg/dL (8.4-10.2); Carbon Dioxide 19 mmol/L (22-30); Creatinine 1 0.75 mg/dL (0.66-1.25); EST GLOMERULAR FILTRATION RATE 113.4 ML/MIN; ETHYL ALCOHOL 176 mg/dL (0-10); Glucose 113 mg/dL (74-106); SALICYLATE < 1.0 mg/dL (2-20); SGOT/AST 51 U/L (17-59); SGPT/ALT 89 U/L (0-50); SODIUM 141 mmol/L (135-145); Total Protein 8.4 g/dL (6.3-8.2)
[2024-04-06 01:21] LABS: ADD URINE CULTURE? NO (NO)
[2024-04-06 01:26] LABS: Amphetamine,Urine NEGATIVE (NEGATIVE); Barbiturate,Urine NEGATIVE (NEGATIVE); Benzodiazepine,Urine NEGATIVE (NEGATIVE); Cocaine,Urine NEGATIVE (NEGATIVE); Methadone,Urine NEGATIVE (NEGATIVE); Opiate,Urine NEGATIVE (NEGATIVE); PCP,Urine NEGATIVE (NEGATIVE); THC,Urine NEGATIVE (NEGATIVE)
[2024-04-06 01:42] LABS: INFLUENZA A NEGATIVE (NEGATIVE); INFLUENZA B NEGATIVE (NEGATIVE); RESPIRATORY SYNCTIAL VIRUS NEGATIVE (NEGATIVE); SARS-CoV-2 Xpert Express NEGATIVE (NEGATIVE)
[2024-04-06 08:57] VITALS: BP 158/96; PULSE 90; RESP 18; O2SAT 98
== END 2024-04-06 09:15 | disposition home or self-care (01) ==
LOC: EEVIPCON 00:21 → ED 00:21
DX: R45.851 Suicidal ideations (principal); Z63.0 Problems in relationship with spouse or partner; I10 Essential (primary) hypertension; Z79.899 Other long term (current) drug therapy
CPT/HCPCS: 0241U; 36415; 80053; 80143; 80179; 80307; 81001; 82077; 85025; 93005; 99284; 90791; Q3014

== ENCOUNTER 2024-08-08 13:57 | Observation (INO) | payer OTHER ==
[2024-08-08] MEDS ORDERED: BABY ASPIRIN 81 MG CHEW ONE (14:37)
[2024-08-08] MEDS ORDERED: Ativan 2 MG/1 ML VIAL ONE (14:37)
[2024-08-08] MEDS ORDERED: Lopressor 50 MG ONE (14:37)
[2024-08-08] MEDS ORDERED: Sodium Chloride 0.9% 1000 ML 1,000 ML ONE (14:38)
[2024-08-08] MEDS: Ativan 2 MG/1 ML VIAL IV ONE (14:39)
[2024-08-08 14:40] LABS: Absolute Neutrophil Ct (ANC) 5.97 x10^3/uL (1.78-5.38); BASOPHIL % 0.5 % (0.2-1.2); Basophil (Absolute #) 0.05 x10^3/uL (0.01-0.08); Eosinophil % 1.8 % (0.8-7.0); Eosinophil (Absolute #) 0.18 x10^3/uL (0.04-0.54); Hemoglobin 16.3 g/dL (13.7-17.5); IMMATURE GRAN # 0.07 x10^3u/L (0.001-0.031); IMMATURE GRAN % 0.7 % (0.001-0.429); Lymphocyte (Absolute #) 2.92 x10^3/uL (1.32-3.57); Lymphocytes % 28.5 % (21.8-53.1); Mean Cell Volume 90.9 fL (79.0-92.2); Mean Corpuscular Hemoglobin 31.5 pg (25.7-32.2); Mean Corpuscular Hgb Concent. 34.7 g/dL (32.3-36.5); Mean Platelet Volume 10.1 fL (9.4-12.4); Monocyte (Absolute #) 1.05 x10^3/uL (0.30-0.82); Monocytes % 10.3 % (5.3-12.2); Neutrophil % 58.2 % (34.0-67.9); Platelet Count 367 x10^3/uL (163-337); Red Blood Count 5.17 x10^6/uL (4.63-6.08); Red Cell Distribution Width 11.5 % (11.6-14.4); White Blood Count 10.2 x10^3/uL (4.23-9.07)
[2024-08-08] MEDS: Sodium Chloride 0.9% 1000 ML 1,000 ML IV STA (14:40)
[2024-08-08] MEDS: Lopressor 50 MG PO SCH (14:40)
[2024-08-08] MEDS: BABY ASPIRIN 81 MG CHEW PO ONE (14:40)
--- NOTE | 2024-08-08 14:44 | ERPHSYRPT ---
- History of Present Illness Time Seen by Provider: 08/08/24 13:58 Historian: patient Exam Limitations: no limitations Patient Subjective Stated Complaint: C/O HTN and "racing heart" since this am Triage Nursing Assessment: Patient brought back to ER in a W/C. He is alert and oriented. Anxious. Flushed. NO cough. No SOB. [facility] WNL. Physician History: 44-year-old male with history of hypertension, anxiety presenting to the ER with complains of substernal chest pain with difficulty breathing off and on for the last 2 months with progressive worsening since morning with associated palpitations. Patient reports he feels racing of heart and getting short of breath even with normal talk and way worse with activity especially climbing stairs. Also reports substernal chest pressure mild to moderate with no significant aggravating or relieving factors. Patient checked his blood pressure at home and it was high in 180s and heart rate in 120s. Patient is supposed to take metoprolol but has not taken today. He is also supposed to take Valium but did not take this morning as he is worried about getting addiction. Has minimal headache but no numbness tingling or focal weakness. Patient is very anxious. Aspirin Treatment Today: no aspirin today Allergies/Adverse Reactions: No Known Drug Allergies Allergy (Verified 08/08/24 17:33) Home Medications: Losartan Potassium 50 mg [Cozaar 50 MG] 100 mg PO EVENING MEAL 04/06/24 [History] Montelukast Sodium 10 mg [Singulair 10 MG] 10 mg PO EVENING MEAL 04/06/24 [History] Diazepam 5 mg [Valium 5 MG] 5 mg PO BID 08/08/24 [History] Metoprolol Succinate 50 mg [Toprol Xl 50 MG] 25 mg PO BID 08/08/24 [History] Hx Tetanus, Diphtheria Vaccination/Date Given: Yes Hx Influenza Vaccination/Date Given: Yes Hx Pneumococcal Vaccination/Date Given: No Immunizations Up to Date: Yes Travel Risk - International Travel Have you traveled outside of the country in past 3 weeks: No - Emerging Infectious Disease Are you exhibiting symptoms associated with any current EIDs: No - Review of Systems Constitutional: No Symptoms Eyes: No Symptoms Ears, Nose, & Throat: No Symptoms Respiratory: Dyspnea, Dyspnea on Exertion (SHAVER) Cardiac: Chest Pain, Palpitations Abdominal/Gastrointestinal: No Symptoms Genitourinary Symptoms: No Symptoms Musculoskeletal: No Symptoms Skin: No Symptoms Neurological: Headache Psychological: Anxiety Endocrine: No Symptoms Hematologic/Lymphatic: No Symptoms Immunological/Allergic: No Symptoms - Past Medical History Pertinent Past Medical History: Yes Neurological History: No Pertinent History ENT History: No Pertinent History Cardiac History: Hypertension Respiratory History: No Pertinent History Endocrine Medical History: Other Musculoskeletal History: Other GI Medical History: No Pertinent History History: Kidney Cancer Psycho-Social History: Anxiety Male Reproductive Disorders: No Pertinent History Other Medical History: STAGE 2 RENAL CELL CA WITH PARTIAL NEPHRECTOMY 13 YEARS AGO. NO CHEMO OR RADIATION - Past Surgical History Past Surgical History: Yes Neuro Surgical History: No Pertinent History Cardiac: No Pertinent History Respiratory: No Pertinent History Gastrointestinal: No Pertinent History Genitourinary: Kidney Surgery Musculoskeletal: No Pertinent History Male Surgical History: No Pertinent History Other Surgical History: partial nephrectomy left kidney - Social History Smoking Status: Former smoker Exposure to second hand smoke: No Drug Use: none Patient Lives Alone: No - Social Determinants of Health Will the patient participate in the screening: Yes Do you worry about a steady place to live?: No Do you have any problems with any of the following?: No known problems In the past 12 months,have you had to go without utilities?: No Transportation Issues: No Has anyone in your support network made you feel unsafe?: No Have you or anyone in your house had to go without enough: No - Nursing Vital Signs Nursing Vital Signs: Initial Vital Signs Temperature 98.9 F 08/08/24 14:00 Pulse Rate 110 H 08/08/24 14:00 Respiratory Rate 21 08/08/24 14:00 Blood Pressure 159/101 08/08/24 14:00 O2 Sat by Pulse Oximetry 97 08/08/24 14:00 Pain Scale Pain Intensity 0 - Physical Exam General Appearance: no apparent distress, alert, anxiety Eye Exam: PERRL/EOMI Ears, Nose, Throat Exam: normal ENT inspection Neck Exam: normal inspection, non-tender, supple, full range of motion Respiratory Exam: normal breath sounds, lungs clear Cardiovascular Exam: normal heart sounds, tachycardia Gastrointestinal/Abdomen Exam: soft, normal bowel sounds, No tenderness Back Exam: normal inspection, normal range of motion Extremity Exam: normal inspection, normal range of motion Neurologic Exam: alert, oriented x 3, cooperative, heavy forger II-XII nml as tested, nml cerebellar function (Anxious), nml station & gait, sensation nml, No normal mood/affect Skin Exam: normal color SpO2 Interpretation: normal SpO2: 97 O2 Delivery: Room Air - Course EKG Interpreted by Me: RATE ([id number]), Sinus Tach, NORMAL AXIS, NORMAL INTERVALS, Non-specific ST Changes Ordered Tests: Active Orders 24 hr Category Date Time Status Bedrest ROUTINE Activity 08/08/24 17:30 Active Up With Assistance ROUTINE Activity 08/08/24 17:30 Active Call Admit Doctor for Orders ON ADMISSION Care 08/08/24 17:30 Active Full Stack Engineer STAT Care 08/08/24 14:30 Completed Code Status Order ROUTINE Care 08/08/24 17:30 Active EKG-ER Only STAT Care 08/08/24 14:30 Completed Fall Protocol Q1H Care 08/08/24 17:30 Active IV Insertion STAT Care 08/08/24 14:[address] in Observation ROUTINE Care 08/08/24 17:30 Active Telemetry q6h Care 08/08/24 17:30 Active Heart-Healthy Diet Diet 08/09/24 Breakfast Active CHEST 1 VIEW (PORTABLE) Stat Exams 08/08/24 15:09 Completed CBC W DIFF Stat Lab 08/08/24 14:30 Completed CK-Creatinine Phosphokinase Stat Lab 08/08/24 14:30 Completed CMP Stat Lab 08/08/24 14:30 Completed D-DIMER QUANTITATIVE Stat Lab 08/08/24 14:30 Completed NT PRO BNPII Stat Lab 08/08/24 14:30 Completed TROPONIN Q4H Lab 08/08/24 14:30 Completed TROPONIN Q4H Lab 08/08/24 18:32 Completed TROPONIN Q4H Lab 08/08/24 22:30 Ordered TSH [TSH, 3RD Generation] Stat Lab 08/08/24 14:30 Completed Pulse Oximetry CONTINUOUS RT 08/08/24 17:30 Completed Transfer Order Routine Transfer 08/08/24 Completed Medication Summary Generic Name Dose Route Start Last Admin Trade Name Freq PRN Reason Stop Dose Admin Diazepam 5 mg 08/08/24 22:00 08/08/24 18:32 Diazepam 5 Mg Tablet PO 09/07/24 21:59 5 mg BID RIYA Administration Enoxaparin Sodium 30 mg 08/09/24 10:00 Enoxaparin Sodium 30 Mg/0.3 Ml Syringe SQ 09/08/24 09:59 DAILY RIYA Sodium Chloride 1,000 mls @ 75 mls/hr 08/08/24 18:30 08/08/24 18:30 Sodium Chloride 0.9% 1000 Ml IV 09/07/24 18:29 75 mls/hr .[id number] RIYA Administration Lactobacillus Acidophilus 1 tab 08/09/24 10:00 Lactobacillus Acidophilus 1 Tab Tablet PO 09/08/24 09:59 DAILY RIYA Losartan Potassium 100 mg 08/08/24 18:20 08/08/24 18:31 Losartan Potassium 50 Mg Tablet PO 09/07/24 17:59 100 mg 1800 RIYA Administration Metoprolol Succinate 25 mg 08/08/24 22:00 08/08/24 18:30 Metoprolol Succinate 25 Mg Xl Tab PO 09/07/24 21:59 25 mg BID RIYA Administration Montelukast Sodium 10 mg 08/08/24 18:20 08/08/24 18:32 Montelukast Sodium 10 Mg Tablet PO 09/07/24 17:59 10 mg 1800 RIYA Administration Discontinued Medications Generic Name Dose Route Start Last Admin Trade Name Freq PRN Reason Stop Dose Admin Aspirin 324 mg 08/08/24 14:30 08/08/24 14:40 Aspirin 81 Mg Tab.Chew PO 08/08/24 14:31 324 mg STAT ONE Administration Aspirin Confirm 08/08/24 14:37 Aspirin 81 Mg Tab.Chew Administered 08/08/24 14:38 Dose 324 mg .ROUTE .STK-MED ONE Sodium Chloride 1,000 mls @ 999 mls/hr 08/08/24 14:30 08/08/24 15:43 Sodium Chloride 0.9% 1000 Ml IV 08/08/24 15:30 Infused .Q1H1M STA Infusion Sodium Chloride Confirm 08/08/24 14:38 Sodium Chloride 0.9% 1000 Ml Administered 08/08/24 14:39 Dose 1,000 mls @ ud .ROUTE .STK-MED ONE Lorazepam 1 mg 08/08/24 14:30 08/08/24 14:39 Lorazepam 2 Mg/1 Ml 2 Mg Vial IV 08/08/24 14:31 1 mg STAT ONE Administration Lorazepam Confirm 08/08/24 14:37 Lorazepam 2 Mg/1 Ml 2 Mg Vial Administered 08/08/24 14:38 Dose 2 mg .ROUTE .STK-MED ONE Losartan Potassium 100 mg 08/08/24 22:00 Losartan Potassium 50 Mg Tablet PO 09/07/24 21:59 HS [facility] Metoprolol Succinate 25 mg 08/08/24 22:00 Metoprolol Succinate 50 Mg Tablet.Sa PO 09/07/24 21:59 BID RIYA Metoprolol Succinate Confirm 08/08/24 18:25 Metoprolol Succinate 25 Mg Xl Tab Administered 08/08/24 18:26 Dose 25 mg .ROUTE .STK-MED ONE Metoprolol Tartrate 50 mg 08/09/24 10:00 08/08/24 14:40 Metoprolol Tartrate 50 Mg Tablet PO 09/08/24 09:59 50 mg DAILY [facility] Administration Metoprolol Tartrate Confirm 08/08/24 14:37 Metoprolol Tartrate 50 Mg Tablet Administered 08/08/24 14:38 Dose 50 mg .ROUTE .STK-MED ONE Montelukast Sodium 10 mg 08/09/24 10:00 Montelukast Sodium 10 Mg Tablet PO 09/08/24 09:59 DAILY [facility] Lab/Rad Data: Laboratory Result Diagrams 08/08/24 14:30 08/08/24 14:30 Laboratory Results 08/08/24 08/08/24 08/08/24 Range/Units 14:30 14:30 14:30 WBC (4.23-9.07) x10^3/uL RBC (4.63-6.08) x10^6/uL Hgb (13.7-17.5) g/dL Hct (40.1-51.0) % MCV (79.0-92.2) fL MCH (25.7-32.2) pg MCHC (32.3-36.5) g/dL RDW (11.6-14.4) % Plt Count (163-337) x10^3/uL MPV (9.4-12.4) fL Gran % (34.0-67.9) % Immature Gran % (Auto) (0.001-0.429) % Nucleat RBC Rel Count (0.00-0.2) % Eos # (Auto) (0.04-0.54) x10^3/uL Immature Gran # (Auto) (0.001-0.031) x10^3u/L Absolute Lymphs (auto) (1.32-3.57) x10^3/uL Absolute Monos (auto) (0.30-0.82) x10^3/uL Absolute Nucleated RBC (0.00-0.012) x10^3u/L Lymphocytes % (21.8-53.1) % Monocytes % (5.3-12.2) % Eosinophils % (0.8-7.0) % Basophils % (0.2-1.2) % Absolute Granulocytes (1.78-5.38) x10^3/uL Basophils # (0.01-0.08) x10^3/uL D-Dimer 0.36 (0.0-0.50) mg/L Sodium 140 (135-145) mmol/L Potassium 3.7 (3.5-5.1) mmol/L Chloride 106 (98-107) mmol/L Carbon Dioxide 18 L (22-30) mmol/L Anion Gap 19.2 H (5-15) MEQ/L BUN 14 (9-20) mg/dL Creatinine 0.90 (0.66-1.25) mg/dL Estimated GFR 107.3 ML/MIN Glucose 114 H (74-106) mg/dL Calcium 9.7 (8.4-10.2) mg/dL Total Bilirubin 0.60 (0.2-1.3) mg/dL AST 39 (17-59) U/L ALT 65 H (0-50) U/L Alkaline Phosphatase 58 (38-126) U/L Creatine Kinase 116 (55-170) U/L Troponin I < 0.012 (0.000-0.033) ng/mL NT-Pro-B Natriuret Pep < 20.0 (<300) pg/mL Serum Total Protein 7.8 (6.3-8.2) g/dL Albumin 4.7 (3.5-5.0) g/dL TSH 3rd Generation 1.082 (0.470-4.680) mIU/L 08/08/24 Range/Units 14:30 WBC 10.2 H (4.23-9.07) x10^3/uL RBC 5.17 (4.63-6.08) x10^6/uL Hgb 16.3 (13.7-17.5) g/dL Hct 47.0 (40.1-51.0) % MCV 90.9 (79.0-92.2) fL MCH 31.5 (25.7-32.2) pg MCHC 34.7 (32.3-36.5) g/dL RDW 11.5 L (11.6-14.4) % Plt Count 367 H (163-337) x10^3/uL MPV 10.1 (9.4-12.4) fL Gran % 58.2 (34.0-67.9) % Immature Gran % (Auto) 0.7 H (0.001-0.429) % Nucleat RBC Rel Count 0.0 (0.00-0.2) % Eos # (Auto) 0.18 (0.04-0.54) x10^3/uL Immature Gran # (Auto) 0.07 H (0.001-0.031) x10^3u/L Absolute Lymphs (auto) 2.92 (1.32-3.57) x10^3/uL Absolute Monos (auto) 1.05 H (0.30-0.82) x10^3/uL Absolute Nucleated RBC 0.00 (0.00-0.012) x10^3u/L Lymphocytes % 28.5 (21.8-53.1) % Monocytes % 10.3 (5.3-12.2) % Eosinophils % 1.8 (0.8-7.0) % Basophils % 0.5 (0.2-1.2) % Absolute Granulocytes 5.97 H (1.78-5.38) x10^3/uL Basophils # 0.05 (0.01-0.08) x10^3/uL D-Dimer (0.0-0.50) mg/L Sodium (135-145) mmol/L Potassium (3.5-5.1) mmol/L Chloride (98-107) mmol/L Carbon Dioxide (22-30) mmol/L Anion Gap (5-15) MEQ/L BUN (9-20) mg/dL Creatinine (0.66-1.25) mg/dL Estimated GFR ML/MIN Glucose (74-106) mg/dL Calcium (8.4-10.2) mg/dL Total Bilirubin (0.2-1.3) mg/dL AST (17-59) U/L ALT (0-50) U/L Alkaline Phosphatase (38-126) U/L Creatine Kinase (55-170) U/L Troponin I (0.000-0.033) ng/mL NT-Pro-B Natriuret Pep (<300) pg/mL Serum Total Protein (6.3-8.2) g/dL Albumin (3.5-5.0) g/dL TSH 3rd Generation (0.470-4.680) mIU/L - Progress Progress: re-examined Air Movement: good Progress Note: 08/08/24 17:10 44-year-old is evaluated in the ER for chest pain, difficulty breathing and palpitations. Patient is very anxious. He is given Ativan along with aspirin, on reevaluation his pain is better. Patient was tachycardic in 120s, improved after metoprolol and Ativan to 90s. EKG showed sinus tach with no acute ST elevations and negative troponins. Patient has negative D-dimer. Chemistries showed some element of dehydration with elevated gap and given fluids. Patient chest x-ray is negative for any acute cardiopulmonary findings. Patient on reevaluation is less anxious but does report having intermittent substernal chest pressure as if something sitting on his chest at times. Does have a family history of heart issues. Patient does not have any cardiac workup done in the recent past. Discussed with Dr. Chester and patient is being admitted for observation. Blood Culture(s) Obtained: No Antibiotics given: No Discussed with : Carmen Will see patient in: hospital (observation) Counseled pt/family regarding: lab results, diagnosis, need for follow-up, rad results Medical Desision Making - Independent Historian Additional History obtained from: Spouse - Discussion of managment Care discussed with:: hospitalist Reviewed:: Test results Agreed on:: Treatment plan, place in obs Will see patient: in hospital - Diagnostic Testing Diagnostic test were ordered, analyzed, and reviewed by me: Yes Radiological Interpretation: Reviewed by me - Risk of complications The pt has a mod risk of morbidity or mortality based on: Need for prescription drug management The pt has a high risk of morbidity or mortality based on: Decision regarding hospitilization or escalation of hosp level of care - Departure Departure Disposition: Observation Clinical Impression: Chest pain, rule out acute myocardial infarction Condition: Stable Critical Care Time: No
[2024-08-08 14:58] LABS: ALBUMIN 4.7 g/dL (3.5-5.0); ALKALINE PHOSPHATASE 58 U/L (38-126); ANION GAP 19.2 MEQ/L (5-15); BLOOD UREA NITROGEN 14 mg/dL (9-20); CHLORIDE 106 mmol/L (98-107); CK-Creatinine Phosphokinase 116 U/L (55-170); Calcium 9.7 mg/dL (8.4-10.2); Carbon Dioxide 18 mmol/L (22-30); EST GLOMERULAR FILTRATION RATE 107.3 ML/MIN; Glucose 114 mg/dL (74-106); NT PRO BNPII < 20.0 pg/mL (<300); Potassium 3.7 mmol/L (3.5-5.1); SGOT/AST 39 U/L (17-59); SGPT/ALT 65 U/L (0-50); SODIUM 140 mmol/L (135-145); TROPONIN < 0.012 ng/mL (0.000-0.033); Total Protein 7.8 g/dL (6.3-8.2)
--- NOTE | 2024-08-08 16:30 | XRAY ---
Indication: Chest pain. Comparison: November 10, 2021 Portable apical lordotic chest again demonstrates normal heart, lungs, and bony thorax.
--- NOTE | 2024-08-08 18:04 | PCM.HP ---
History of Present Illness - Chief Complaint Chief Complaint: Chest pain rule out acute WI Date: 08/08/24 History of Present Illness: is a 44 year old male iwth pmhx of anxiety, kidney cancer, and HTN. He presented to the ER with complains of substernal chest pain with difficulty breathing off and on for the last 2 months with progressive worsening since morning with associated palpitations. Patient reports he feels racing of heart and getting short of breath even with normal talk and way worse with activity especially climbing stairs. Also reports substernal chest pressure mild to moderate with no significant aggravating or relieving factors. Patient checked his blood pressure at home and it was high in 180s and heart rate in 120s. Patient is supposed to take metoprolol but has not taken today. He is also supposed to take Valium but did not take this morning as he is worried about getting addiction. Has minimal headache but no numbness tingling or focal weakness. Patient is very anxious. He reports recent diarrhea for 1 week. He states his stools are always bloody as he has hemorrhoids. WIll monitor HGB and have pt f/u OP with gerenal surgery. Will start pt's home meds and IVF's. Will trend trops and monitor on Tele. - Review of Systems Constitutional: No Fever, No Chills Eyes: No Symptoms Ears, Nose, & Throat: No Symptoms Respiratory: Short Of Breath, No Cough Cardiac: Chest Pain, Palpitations, No Edema, No Syncope Abdominal/Gastrointestinal: Hematochezia (hemorrhoids), No Abdominal Pain, No Nausea, No Vomiting, No Diarrhea Genitourinary Symptoms: No Dysuria Musculoskeletal: No Back Pain, No Neck Pain Skin: No Rash Neurological: No Dizziness, No Focal Weakness, No Sensory Changes Psychological: No Symptoms, Anxiety Endocrine: No Symptoms Hematologic/Lymphatic: No Symptoms Immunological/Allergic: No Symptoms Medications & Allergies Home Medications: Home Medication List Losartan Potassium 50 mg [Cozaar 50 MG] 100 mg PO EVENING MEAL 04/06/24 [History Confirmed 08/08/24] Montelukast Sodium 10 mg [Singulair 10 MG] 10 mg PO EVENING MEAL 04/06/24 [History Confirmed 08/08/24] Diazepam 5 mg [Valium 5 MG] 5 mg PO BID 08/08/24 [History Confirmed 08/08/24] Metoprolol Succinate 50 mg [Toprol Xl 50 MG] 25 mg PO BID 08/08/24 [History Confirmed 08/08/24] Allergies/Adverse Reactions: Allergies Allergy/AdvReac Type Severity Reaction Status Date / Time No Known Drug Allergies Allergy Verified 08/08/24 17:33 - Past Medical History Past Medical History: Yes Neurological History: No Pertinent History ENT History: No Pertinent History Cardiac History: Hypertension Respiratory History: No Pertinent History Endocrine Medical History: Other Musculoskelatal History: Other GI Medical History: No Pertinent History History: Kidney Cancer Pyscho-Social History: Anxiety Male Reproductive Disorders: No Pertinent History Comment: STAGE 2 RENAL CELL CA WITH PARTIAL NEPHRECTOMY 13 YEARS AGO. NO CHEMO OR RADIATION - Past Surgical History Past Surgical History: Yes Neuro Surgical History: No Pertinent History Cardiac History: No Pertinent History Respiratory Surgery: No Pertinent History GI Surgical History: No Pertinent History Genitourinary Surgical Hx: Kidney Surgery Musculskeletal Surgical Hx: No Pertinent History Male Surgical History: No Pertinent History Other Surgical History: partial nephrectomy left kidney - Social History Smoking Status: Never smoker Exposure to second hand smoke: No Alcohol: None Drug Use: none - Social Determinants of Health Will the patient participate in the screening: Yes Do you worry about a steady place to live?: No Do you have any problems with any of the following?: No known problems In the past 12 months,have you had to go without utilities?: No Have you or anyone in your house had to go without enough: No Transportation Issues: No Has anyone in your support network made you feel unsafe?: No Does the patient want assistance with any of the above?: No - Physical Exam Vital Signs: Vital Signs - 24 hr Temp Pulse Resp BP BP Pulse Ox 08/08/24 17:37 98 F 74 130/91 96 08/08/24 17:15 89 152/103 98 08/08/24 17:13 97 08/08/24 17:00 91 H 153/119 95 08/08/24 16:46 91 H 153/102 95 08/08/24 16:30 93 H 145/101 95 08/08/24 16:15 94 H 142/99 93 L 08/08/24 15:45 94 H 148/100 92 L 08/08/24 15:30 95 H 14 133/103 96 08/08/24 15:15 93 H 15 137/93 96 08/08/24 15:01 109 H 25 H 191/80 95 08/08/24 14:46 108 H 24 187/86 94 L 08/08/24 14:30 118 H 16 147/97 94 L 08/08/24 14:01 120 H 15 159/101 97 08/08/24 14:00 98.9 F 110 H 21 159/101 97 General Appearance: no apparent distress, alert, obese Neurologic Exam: alert, oriented x 3, cooperative, normal mood/affect, nml cerebellar function, nml station & gait, sensation nml, No motor deficits Eye Exam: PERRL/EOMI, eyes nml inspection Ears, Nose, Throat Exam: normal ENT inspection, TMs normal, pharynx normal, moist mucous membranes Neck Exam: normal inspection, non-tender, supple, full range of motion Respiratory Exam: normal breath sounds, lungs clear, No respiratory distress Cardiovascular Exam: regular rate/rhythm, normal heart sounds, normal peripheral pulses Gastrointestinal/Abdomen Exam: soft, normal bowel sounds, No tenderness, No mass Back Exam: normal inspection, normal range of motion, No CVA tenderness, No vertebral tenderness Extremity Exam: normal inspection, normal range of motion, pelvis stable Skin Exam: normal color, warm, dry, No rash Lymphatic Exam: No adenopathy Results - Labs Lab/Micro Results: Lab Results-Last 24 Hours 08/08/24 08/08/24 08/08/24 Range/Units 14:30 14:30 14:30 WBC 10.2 H (4.23-9.07) x10^3/uL RBC 5.17 (4.63-6.08) x10^6/uL Hgb 16.3 (13.7-17.5) g/dL Hct 47.0 (40.1-51.0) % MCV 90.9 (79.0-92.2) fL MCH 31.5 (25.7-32.2) pg MCHC 34.7 (32.3-36.5) g/dL RDW 11.5 L (11.6-14.4) % Plt Count 367 H (163-337) x10^3/uL MPV 10.1 (9.4-12.4) fL Gran % 58.2 (34.0-67.9) % Immature Gran % (Auto) 0.7 H (0.001-0.429) % Nucleat RBC Rel Count 0.0 (0.00-0.2) % Eos # (Auto) 0.18 (0.04-0.54) x10^3/uL Immature Gran # (Auto) 0.07 H (0.001-0.031) x10^3u/L Absolute Lymphs (auto) 2.92 (1.32-3.57) x10^3/uL Absolute Monos (auto) 1.05 H (0.30-0.82) x10^3/uL Absolute Nucleated RBC 0.00 (0.00-0.012) x10^3u/L Lymphocytes % 28.5 (21.8-53.1) % Monocytes % 10.3 (5.3-12.2) % Eosinophils % 1.8 (0.8-7.0) % Basophils % 0.5 (0.2-1.2) % Absolute Granulocytes 5.97 H (1.78-5.38) x10^3/uL Basophils # 0.05 (0.01-0.08) x10^3/uL D-Dimer 0.36 (0.0-0.50) mg/L Sodium 140 (135-145) mmol/L Potassium 3.7 (3.5-5.1) mmol/L Chloride 106 (98-107) mmol/L Carbon Dioxide 18 L (22-30) mmol/L Anion Gap 19.2 H (5-15) MEQ/L BUN 14 (9-20) mg/dL Creatinine 0.90 (0.66-1.25) mg/dL Estimated GFR 107.3 ML/MIN Glucose 114 H (74-106) mg/dL Calcium 9.7 (8.4-10.2) mg/dL Total Bilirubin 0.60 (0.2-1.3) mg/dL AST 39 (17-59) U/L ALT 65 H (0-50) U/L Alkaline Phosphatase 58 (38-126) U/L Creatine Kinase 116 (55-170) U/L Troponin I < 0.012 (0.000-0.033) ng/mL NT-Pro-B Natriuret Pep < 20.0 (<300) pg/mL Serum Total Protein 7.8 (6.3-8.2) g/dL Albumin 4.7 (3.5-5.0) g/dL TSH 3rd Generation (0.470-4.680) mIU/L 08/08/24 Range/Units 14:30 WBC (4.23-9.07) x10^3/uL RBC (4.63-6.08) x10^6/uL Hgb (13.7-17.5) g/dL Hct (40.1-51.0) % MCV (79.0-92.2) fL MCH (25.7-32.2) pg MCHC (32.3-36.5) g/dL RDW (11.6-14.4) % Plt Count (163-337) x10^3/uL MPV (9.4-12.4) fL Gran % (34.0-67.9) % Immature Gran % (Auto) (0.001-0.429) % Nucleat RBC Rel Count (0.00-0.2) % Eos # (Auto) (0.04-0.54) x10^3/uL Immature Gran # (Auto) (0.001-0.031) x10^3u/L Absolute Lymphs (auto) (1.32-3.57) x10^3/uL Absolute Monos (auto) (0.30-0.82) x10^3/uL Absolute Nucleated RBC (0.00-0.012) x10^3u/L Lymphocytes % (21.8-53.1) % Monocytes % (5.3-12.2) % Eosinophils % (0.8-7.0) % Basophils % (0.2-1.2) % Absolute Granulocytes (1.78-5.38) x10^3/uL Basophils # (0.01-0.08) x10^3/uL D-Dimer (0.0-0.50) mg/L Sodium (135-145) mmol/L Potassium (3.5-5.1) mmol/L Chloride (98-107) mmol/L Carbon Dioxide (22-30) mmol/L Anion Gap (5-15) MEQ/L BUN (9-20) mg/dL Creatinine (0.66-1.25) mg/dL Estimated GFR ML/MIN Glucose (74-106) mg/dL Calcium (8.4-10.2) mg/dL Total Bilirubin (0.2-1.3) mg/dL AST (17-59) U/L ALT (0-50) U/L Alkaline Phosphatase (38-126) U/L Creatine Kinase (55-170) U/L Troponin I (0.000-0.033) ng/mL NT-Pro-B Natriuret Pep (<300) pg/mL Serum Total Protein (6.3-8.2) g/dL Albumin (3.5-5.0) g/dL TSH 3rd Generation 1.082 (0.470-4.680) mIU/L - Radiology Impressions Radiology Exams & Impressions: Radiology Procedures Category Date Time Status CHEST 1 VIEW (PORTABLE) Stat Exams 08/08/24 15:09 Completed Assessment/Plan (1) Chest pain, rule out acute myocardial infarction Current Visit: Yes Status: Acute Assessment & Plan: - tele - trend trops, x1 negative - EKG - CXR Portable apical lordotic chest again demonstrates normal heart, lungs, and bony thorax. - TSH- 1.082 - cardiac diet - D-dimer 0.36 - 2:2 anxiety? Code(s): R07.9 - CHEST PAIN, UNSPECIFIED (2) Diarrhea Current Visit: Yes Status: Acute Assessment & Plan: - stool culture, c-diff - IVF - probiotics Code(s): R19.7 - DIARRHEA, UNSPECIFIED (3) Metabolic acidosis Current Visit: Yes Status: Acute Assessment & Plan: - 2:2 diarrhea - IVF - CO2 18 Code(s): E87.20 - ACIDOSIS, UNSPECIFIED (4) Dehydration Current Visit: Yes Status: Acute Assessment & Plan: - 2:2 diarrhea x1 week - IVF Code(s): E86.0 - DEHYDRATION (5) HTN (hypertension) Current Visit: Yes Status: Chronic Assessment & Plan: - stable - resume home meds - tele - cardiology f/u OP at D/C will need appointment Code(s): I10 - ESSENTIAL (PRIMARY) HYPERTENSION (6) Anxiety Current Visit: Yes Status: Chronic Assessment & Plan: - resume home meds - Lorazepam gave in ER and not helpful per pt. Code(s): F41.9 - ANXIETY DISORDER, UNSPECIFIED (7) Hemorrhoids Current Visit: Yes Status: Acute Assessment & Plan: - + bleeding with each stool - + diarrhea - Hgb stable 16- trend - Will need OP F/U with GS at d/c Code(s): K64.9 - UNSPECIFIED HEMORRHOIDS (8) BMI 30.0-30.9,adult Current Visit: Yes Status: Chronic Assessment & Plan: - advised diet and exercise control VTE: Lovenox Code status:Full D/C plan: tomorrow? Next of KIN: Code(s): Z68.30 - BODY MASS INDEX [BMI] 30.0-30.9, ADULT Telemedicine Encounter - Telemedicine Encounter Telemedicine Encounter: "The entirety of this encounter was performed via Telemedicine" This visit was performed using real-time audio and video connection between my location and thepatients locationwith the assistance of a surrogateat the patients location. Written or verbal consent was obtained from the patient/guardian to perform this visit using[facility] technology. Any patient questions regarding the telemedicine interaction were answered.
[2024-08-08] MEDS ORDERED: Toprol-Xl 25MG Tablets ONE (18:25)
[2024-08-08] MEDS: Sodium Chloride 0.9% 1000 ML 1,000 ML IV SCH (18:30)
[2024-08-08] MEDS: Toprol-Xl 25MG Tablets PO SCH (18:30)
[2024-08-08] MEDS: Cozaar 50 MG PO SCH (18:31)
[2024-08-08] MEDS: Valium 5 MG PO SCH (18:32)
[2024-08-08] MEDS: Singulair 10 MG PO SCH (18:32)
[2024-08-08] MEDS ORDERED: Cozaar 50 MG PO SCH (22:00)
[2024-08-08] MEDS ORDERED: Toprol Xl 50 MG PO SCH (22:00)
[2024-08-09 05:38] LABS: Hemoglobin 15.2 g/dL (13.7-17.5); Mean Cell Volume 93.6 fL (79.0-92.2); Mean Corpuscular Hemoglobin 31.6 pg (25.7-32.2); Mean Corpuscular Hgb Concent. 33.8 g/dL (32.3-36.5); Mean Platelet Volume 10.1 fL (9.4-12.4); Platelet Count 311 x10^3/uL (163-337); Red Blood Count 4.81 x10^6/uL (4.63-6.08); Red Cell Distribution Width 11.7 % (11.6-14.4); White Blood Count 9.3 x10^3/uL (4.23-9.07)
[2024-08-09 06:06] LABS: ALBUMIN 3.9 g/dL (3.5-5.0); ANION GAP 14.7 MEQ/L (5-15); BILIRUBIN,TOTAL 0.6 mg/dL (0.2-1.3); Calcium 8.9 mg/dL (8.4-10.2); Creatinine 1 0.8 mg/dL (0.66-1.25); EST GLOMERULAR FILTRATION RATE 111.2 ML/MIN; Potassium 4.1 mmol/L (3.5-5.1); Total Protein 6.6 g/dL (6.3-8.2)
[2024-08-09 07:36] VITALS: RESP 17; O2SAT 96
[2024-08-09] MEDS: ENOXAPARIN SODIUM SQ SCH (08:13)
[2024-08-09] MEDS: Acidophilus TABLET PO SCH (08:14)
--- NOTE | 2024-08-09 09:59 | PCM.DS ---
Discharge Summary Date of Admission: 08/08/24 17:28 Date of Discharge: 08/09/24 Admitting Physician: SOLEDAD YEOBAH MD Primary Care Provider: OLI TILLEY Allergies Allergies No Known Drug Allergies Allergy (Verified 08/08/24 17:33) Hospital Summary - Hospital Course Hospital Course: 08/08/24 44-year-old male with history of hypertension, anxiety presenting to the ER with complains of substernal chest pain with difficulty breathing off and on for the last 2 months with progressive worsening since morning with associated palpitations. Patient reports he feels racing of heart and getting short of breath even with normal talk and way worse with activity especially climbing stairs. Also reports substernal chest pressure mild to moderate with no significant aggravating or relieving factors. Patient checked his blood pressure at home and it was high in 180s and heart rate in 120s. Patient is supposed to take metoprolol but has not taken today. He is also supposed to take Valium but did not take this morning as he is worried about getting addiction. Has minimal headache but no numbness tingling or focal weakness. Patient is very anxious. 08/09/24 Pt resting in bed. CP gone since admission, Trop x3 negative. explained he has has intermittent H/A and blurred vision for few years and getting worse. Further eval with CT of head today- negative. Will likely need Op workup for possible migraine. He currently does no have a H/A or blurred vision. He last had an eye exam over 1 year ago. Will have pt f/u with cardiology OP. He continues to hae anxiety but well controlled with medication. Advised f/u OP with [facility]. He denies any further concerns at this time. - Vitals & Intake/Output Vital Signs: Vital Signs Temperature 97.5 F 08/09/24 07:35 Pulse Rate 62 08/09/24 07:35 Respiratory Rate 17 08/09/24 07:35 Blood Pressure 122/72 08/09/24 07:35 O2 Sat by Pulse Oximetry 96 08/09/24 07:35 Intake & Output: Intake & Output 08/06/24 08/07/24 08/08/24 08/09/24 11:59 11:59 11:59 11:59 Intake Total 2383 Output Total 1000 Balance 1383 Weight 103.3 kg - Lab Result Diagrams: 08/09/24 05:09 08/09/24 05:09 Lab Results-Last 24 Hrs: Lab Results-Last 24 Hours 08/08/24 08/08/24 08/08/24 Range/Units 14:30 14:30 14:30 WBC 10.2 H (4.23-9.07) x10^3/uL RBC 5.17 (4.63-6.08) x10^6/uL Hgb 16.3 (13.7-17.5) g/dL Hct 47.0 (40.1-51.0) % MCV 90.9 (79.0-92.2) fL MCH 31.5 (25.7-32.2) pg MCHC 34.7 (32.3-36.5) g/dL RDW 11.5 L (11.6-14.4) % Plt Count 367 H (163-337) x10^3/uL MPV 10.1 (9.4-12.4) fL Gran % 58.2 (34.0-67.9) % Immature Gran % (Auto) 0.7 H (0.001-0.429) % Nucleat RBC Rel Count 0.0 (0.00-0.2) % Eos # (Auto) 0.18 (0.04-0.54) x10^3/uL Immature Gran # (Auto) 0.07 H (0.001-0.031) x10^3u/L Absolute Lymphs (auto) 2.92 (1.32-3.57) x10^3/uL Absolute Monos (auto) 1.05 H (0.30-0.82) x10^3/uL Absolute Nucleated RBC 0.00 (0.00-0.012) x10^3u/L Lymphocytes % 28.5 (21.8-53.1) % Monocytes % 10.3 (5.3-12.2) % Eosinophils % 1.8 (0.8-7.0) % Basophils % 0.5 (0.2-1.2) % Absolute Granulocytes 5.97 H (1.78-5.38) x10^3/uL Basophils # 0.05 (0.01-0.08) x10^3/uL D-Dimer 0.36 (0.0-0.50) mg/L Sodium 140 (135-145) mmol/L Potassium 3.7 (3.5-5.1) mmol/L Chloride 106 (98-107) mmol/L Carbon Dioxide 18 L (22-30) mmol/L Anion Gap 19.2 H (5-15) MEQ/L BUN 14 (9-20) mg/dL Creatinine 0.90 (0.66-1.25) mg/dL Estimated GFR 107.3 ML/MIN Glucose 114 H (74-106) mg/dL Calcium 9.7 (8.4-10.2) mg/dL Total Bilirubin 0.60 (0.2-1.3) mg/dL AST 39 (17-59) U/L ALT 65 H (0-50) U/L Alkaline Phosphatase 58 (38-126) U/L Creatine Kinase 116 (55-170) U/L Troponin I < 0.012 (0.000-0.033) ng/mL NT-Pro-B Natriuret Pep < 20.0 (<300) pg/mL Serum Total Protein 7.8 (6.3-8.2) g/dL Albumin 4.7 (3.5-5.0) g/dL TSH 3rd Generation (0.470-4.680) mIU/L 08/08/24 08/08/24 08/08/24 Range/Units 14:30 18:32 22:43 WBC (4.23-9.07) x10^3/uL RBC (4.63-6.08) x10^6/uL Hgb (13.7-17.5) g/dL Hct (40.1-51.0) % MCV (79.0-92.2) fL MCH (25.7-32.2) pg MCHC (32.3-36.5) g/dL RDW (11.6-14.4) % Plt Count (163-337) x10^3/uL MPV (9.4-12.4) fL Gran % (34.0-67.9) % Immature Gran % (Auto) (0.001-0.429) % Nucleat RBC Rel Count (0.00-0.2) % Eos # (Auto) (0.04-0.54) x10^3/uL Immature Gran # (Auto) (0.001-0.031) x10^3u/L Absolute Lymphs (auto) (1.32-3.57) x10^3/uL Absolute Monos (auto) (0.30-0.82) x10^3/uL Absolute Nucleated RBC (0.00-0.012) x10^3u/L Lymphocytes % (21.8-53.1) % Monocytes % (5.3-12.2) % Eosinophils % (0.8-7.0) % Basophils % (0.2-1.2) % Absolute Granulocytes (1.78-5.38) x10^3/uL Basophils # (0.01-0.08) x10^3/uL D-Dimer (0.0-0.50) mg/L Sodium (135-145) mmol/L Potassium (3.5-5.1) mmol/L Chloride (98-107) mmol/L Carbon Dioxide (22-30) mmol/L Anion Gap (5-15) MEQ/L BUN (9-20) mg/dL Creatinine (0.66-1.25) mg/dL Estimated GFR ML/MIN Glucose (74-106) mg/dL Calcium (8.4-10.2) mg/dL Total Bilirubin (0.2-1.3) mg/dL AST (17-59) U/L ALT (0-50) U/L Alkaline Phosphatase (38-126) U/L Creatine Kinase (55-170) U/L Troponin I < 0.012 < 0.012 (0.000-0.033) ng/mL NT-Pro-B Natriuret Pep (<300) pg/mL Serum Total Protein (6.3-8.2) g/dL Albumin (3.5-5.0) g/dL TSH 3rd Generation 1.082 (0.470-4.680) mIU/L 08/09/24 08/09/24 Range/Units 05:09 05:09 WBC 9.3 H (4.23-9.07) x10^3/uL RBC 4.81 (4.63-6.08) x10^6/uL Hgb 15.2 (13.7-17.5) g/dL Hct 45.0 (40.1-51.0) % MCV 93.6 H (79.0-92.2) fL MCH 31.6 (25.7-32.2) pg MCHC 33.8 (32.3-36.5) g/dL RDW 11.7 (11.6-14.4) % Plt Count 311 (163-337) x10^3/uL MPV 10.1 (9.4-12.4) fL Gran % (34.0-67.9) % Immature Gran % (Auto) (0.001-0.429) % Nucleat RBC Rel Count (0.00-0.2) % Eos # (Auto) (0.04-0.54) x10^3/uL Immature Gran # (Auto) (0.001-0.031) x10^3u/L Absolute Lymphs (auto) (1.32-3.57) x10^3/uL Absolute Monos (auto) (0.30-0.82) x10^3/uL Absolute Nucleated RBC (0.00-0.012) x10^3u/L Lymphocytes % (21.8-53.1) % Monocytes % (5.3-12.2) % Eosinophils % (0.8-7.0) % Basophils % (0.2-1.2) % Absolute Granulocytes (1.78-5.38) x10^3/uL Basophils # (0.01-0.08) x10^3/uL D-Dimer (0.0-0.50) mg/L Sodium 138 (135-145) mmol/L Potassium 4.1 (3.5-5.1) mmol/L Chloride 108 H (98-107) mmol/L Carbon Dioxide 19 L (22-30) mmol/L Anion Gap 14.7 (5-15) MEQ/L BUN 12 (9-20) mg/dL Creatinine 0.80 (0.66-1.25) mg/dL Estimated GFR 111.2 ML/MIN Glucose 99 (74-106) mg/dL Calcium 8.9 (8.4-10.2) mg/dL Total Bilirubin 0.60 (0.2-1.3) mg/dL AST 34 (17-59) U/L ALT 57 H (0-50) U/L Alkaline Phosphatase 52 (38-126) U/L Creatine Kinase (55-170) U/L Troponin I (0.000-0.033) ng/mL NT-Pro-B Natriuret Pep (<300) pg/mL Serum Total Protein 6.6 (6.3-8.2) g/dL Albumin 3.9 (3.5-5.0) g/dL TSH 3rd Generation (0.470-4.680) mIU/L Micro Results-Entire Visit: Microbiology 08/08/24 18:24 Stool Culture Result 1 - Final Stool Not Reportable Stool Culture Result 2 - Final Not Reportable Stool Culture Result 3 - Final Not Reportable Stool Culture Result 4 - Final Not Reportable Stool Culture Organism Suscept - Final Not Reportable Campylobacter Result 1 - Final Not Reportable Campylobacter Result 2 - Final Not Reportable Campylobactor Result 3 - Final Not Reportable Campylobacter Result 4 - Final Not Reportable Campylobactor Susceptibility - Final Not Reportable - Radiology Exams Ordered Rad Exams-Entire Visit: Radiology Procedures Category Date Time Status CHEST 1 VIEW (PORTABLE) Stat Exams 08/08/24 15:09 Completed HEAD WITHOUT CONTRAST [CT] Routine Exams 08/09/24 09:46 Ordered Discharge Exam General Appearance: no apparent distress, alert Neurologic Exam: alert, oriented x 3, cooperative, normal mood/affect, nml cerebellar function, sensation nml, No motor deficits Eye Exam: PERRL, EOMI, eyes nml inspection Ears, Nose, Throat Exam: normal ENT inspection, pharynx normal, moist mucous membranes Neck Exam: normal inspection, non-tender, supple, full range of motion Respiratory Exam: normal breath sounds, lungs clear, No respiratory distress Cardiovascular Exam: regular rate/rhythm, normal heart sounds Gastrointestinal/Abdomen Exam: soft, No tenderness, No mass Male Genitalia Exam: deferred Rectal Exam: deferred Back Exam: normal inspection, normal range of motion, No CVA tenderness, No vertebral tenderness Extremity Exam: normal inspection, normal range of motion Skin Exam: normal color, warm, dry Final Diagnosis/Problem List - Final Discharge Diagnosis/Problem (1) Chest pain, rule out acute myocardial infarction Current Visit: Yes Status: Acute Code(s): R07.9 - CHEST PAIN, UNSPECIFIED (2) Diarrhea Current Visit: Yes Status: Acute Code(s): R19.7 - DIARRHEA, UNSPECIFIED (3) Metabolic acidosis Current Visit: Yes Status: Acute Code(s): E87.20 - ACIDOSIS, UNSPECIFIED (4) Dehydration Current Visit: Yes Status: Acute Code(s): E86.0 - DEHYDRATION (5) HTN (hypertension) Current Visit: Yes Status: Chronic Code(s): I10 - ESSENTIAL (PRIMARY) HYPERTENSION (6) Anxiety Current Visit: Yes Status: Chronic Code(s): F41.9 - ANXIETY DISORDER, UNSPECIFIED (7) Hemorrhoids Current Visit: Yes Status: Acute Code(s): K64.9 - UNSPECIFIED HEMORRHOIDS (8) BMI 30.0-30.9,adult Current Visit: Yes Status: Chronic Assessment & Plan: (1) Chest pain, rule out acute myocardial infarction Current Visit: Yes Status: Acute Assessment & Plan: - tele - trend trops, x3 negative - EKG - CXR Portable apical lordotic chest again demonstrates normal heart, lungs, and bony thorax. - TSH- 1.082 - cardiac diet - D-dimer 0.36 - 2:2 anxiety? 08/09 - CP resolved Code(s): R07.9 - CHEST PAIN, UNSPECIFIED (2) Diarrhea Current Visit: Yes Status: Acute Assessment & Plan: - stool culture, c-diff- pending - IVF - probiotics Code(s): R19.7 - DIARRHEA, UNSPECIFIED (3) Metabolic acidosis Current Visit: Yes Status: Acute Assessment & Plan: - 2:2 diarrhea - IVF - CO2 18 / - Co2 19- improved Code(s): E87.20 - ACIDOSIS, UNSPECIFIED (4) Dehydration Current Visit: Yes Status: Acute Assessment & Plan: - 2:2 diarrhea x1 week - IVF 08/09 - IV stopped per pt request - encourage oral intake Code(s): E86.0 - DEHYDRATION (5) HTN (hypertension) Current Visit: Yes Status: Chronic Assessment & Plan: - stable - resume home meds - tele - cardiology f/u OP at D/C will need appointment Code(s): I10 - ESSENTIAL (PRIMARY) HYPERTENSION (6) Anxiety Current Visit: Yes Status: Chronic Assessment & Plan: - resume home meds - Lorazepam gave in ER and not helpful per pt. Code(s): F41.9 - ANXIETY DISORDER, UNSPECIFIED (7) Hemorrhoids Current Visit: Yes Status: Acute Assessment & Plan: - + bleeding with each stool - + diarrhea - Hgb stable 16- trend - Will need OP F/U with GS at d/c 08/09 - Hgb 15.2- stable Code(s): K64.9 - UNSPECIFIED HEMORRHOIDS (8) BMI 30.0-30.9,adult Current Visit: Yes Status: Chronic Assessment & Plan: - advised diet and exercise control Code(s): Z68.30 - BODY MASS INDEX [BMI] 30.0-30.9, ADULT (9) Headache Current Visit: Yes Status: Acute Assessment & Plan: - intermittent with associated blurred vision at times - could be job related - last eye exam 1 year ago- f/u at d/c - Head CT- negative - needs Op workup for migraines Code(s): R51.9 - HEADACHE, UNSPECIFIED - Discharge Discharge Date: 08/09/24 Disposition: Home, Self-Care Condition: Stable Prescriptions: New Lactobacillus Acidophilus [Acidophilus TABLET] 1 tab PO DAILY 30 Days #30 tablet Continue Losartan Potassium 50 mg [Cozaar 50 MG] 100 mg PO EVENING MEAL Montelukast Sodium 10 mg [Singulair 10 MG] 10 mg PO EVENING MEAL Diazepam 5 mg [Valium 5 MG] 5 mg PO BID Metoprolol Succinate 50 mg [Toprol Xl 50 MG] 25 mg PO BID Follow up with: JULITO GREENFIELD [CONSULTING PHYSICIAN] - 10/02/24 9:45 am ([place] Office) JIM PASTRANA [COURTESY STAFF] - 09/16/24 9:00 am ([place] Office) OLI TILLEY NP [Primary Care Provider] - 08/15/24 8:45 am
[2024-08-09] MEDS ORDERED: Singulair 10 MG PO SCH (10:00)
--- NOTE | 2024-08-09 10:09 | XRAY ---
Indication: Headache and blurred vision. Multiple contiguous axial images obtained through the head without contrast. Comparison: August 20, 2022 Normal appearing brain parenchyma, ventricles, and bony calvarium. Visualized paranasal sinuses and mastoid air cells are clear. Impression: Continued normal CT head without contrast exam.
[2024-08-09 11:51] VITALS: BP 136/86; PULSE 68; TEMP 97.8
== END 2024-08-09 13:22 | disposition home or self-care (01) ==
LOC: ED 13:57 → MED SURG 17:28
PROVIDERS: ADMIT Internal Medicine; ATTEND Internal Medicine
DX: R07.9 Chest pain, unspecified (principal); F41.9 Anxiety disorder, unspecified; I10 Essential (primary) hypertension; R19.7 Diarrhea, unspecified; E87.20 Acidosis, unspecified; E86.0 Dehydration; K64.9 Unspecified hemorrhoids; R51.9 Headache, unspecified; Z79.899 Other long term (current) drug therapy; Z68.30 Body mass index [BMI] 30.0-30.9, adult; Z85.528 Personal history of other malignant neoplasm of kidney
CPT/HCPCS: 36000; 36415; 70450; 71045; 80053; 82550; 83880; 84443; 84484; 85025; 85027; 85379; 93005; 93268; 96374; 99284; J1650; J2060; Q3014; A9270-GY; G0378

== ENCOUNTER 2024-11-20 18:29 | Emergency (ER) | payer OTHER ==
--- NOTE | 2024-11-20 18:51 | ERPHSYRPT ---
- History of Present Illness Time Seen by Provider: 11/20/24 18:49 Source: patient Exam Limitations: no limitations Physician History: 44-year-old male presents to our ED for evaluation of "low blood pressure". Patient states he was feeling unwell at home. Patient took his blood pressure. Patient reports systolic blood pressure at home was was 60. No trauma no fever no nausea no vomiting no chest pain no shortness of breath. Symptoms are mild to moderate in intensity. No specific worsening or improving factors. Patient otherwise feels well. He voices no other complaints or concerns at this time. Portions of this note were created with voice recognition technology. There may be grammatical, spelling, punctuation or sound alike errors Timing/Duration: today Severity: moderate Modifying Factors: Improves With: nothing Associated Symptoms: denies symptoms Allergies/Adverse Reactions: No Known Drug Allergies Allergy (Verified 11/20/24 18:45) Home Medications: Losartan Potassium 50 mg [Cozaar 50 MG] 100 mg PO EVENING MEAL 04/06/24 [History] Montelukast Sodium 10 mg [Singulair 10 MG] 10 mg PO EVENING MEAL 04/06/24 [History] Diazepam 5 mg [Valium 5 MG] 5 mg PO BID 08/08/24 [History] Metoprolol Succinate 50 mg [Toprol Xl 50 MG] 25 mg PO BID 08/08/24 [History] Buspirone HCl 5 mg [Buspar 5 mg] 10 mg PO BID 11/20/24 [History] Hx Tetanus, Diphtheria Vaccination/Date Given: Yes Hx Influenza Vaccination/Date Given: Yes Hx Pneumococcal Vaccination/Date Given: No Travel Risk - Emerging Infectious Disease Are you exhibiting symptoms associated with any current EIDs: No - Review of Systems Constitutional: No Symptoms, No Fever, No Chills Eyes: No Symptoms Ears, Nose, & Throat: No Symptoms Respiratory: No Symptoms, No Cough, No Dyspnea Cardiac: No Symptoms, No Chest Pain, No Edema, No Syncope Abdominal/Gastrointestinal: No Symptoms, No Abdominal Pain, No Nausea, No Vomiting, No Diarrhea Genitourinary Symptoms: No Symptoms, No Dysuria Musculoskeletal: No Symptoms, No Back Pain, No Neck Pain Skin: No Symptoms, No Rash Neurological: No Symptoms, No Dizziness, No Focal Weakness, No Sensory Changes Psychological: No Symptoms Endocrine: No Symptoms Hematologic/Lymphatic: No Symptoms Immunological/Allergic: No Symptoms All Other Systems: Reviewed and Negative - Past Medical History Pertinent Past Medical History: Yes Neurological History: No Pertinent History ENT History: No Pertinent History Cardiac History: Hypertension Respiratory History: No Pertinent History Endocrine Medical History: Other Musculoskeletal History: Other GI Medical History: No Pertinent History History: Kidney Cancer Psycho-Social History: Anxiety Male Reproductive Disorders: No Pertinent History Other Medical History: STAGE 2 RENAL CELL CA WITH PARTIAL NEPHRECTOMY 13 YEARS AGO. NO CHEMO OR RADIATION - Past Surgical History Past Surgical History: Yes Neuro Surgical History: No Pertinent History Cardiac: No Pertinent History Respiratory: No Pertinent History Gastrointestinal: No Pertinent History Genitourinary: Kidney Surgery Musculoskeletal: No Pertinent History Male Surgical History: No Pertinent History Other Surgical History: partial nephrectomy left kidney - Social History Smoking Status: Former smoker Exposure to second hand smoke: No Drug Use: none Patient Lives Alone: No - Social Determinants of Health Will the patient participate in the screening: Yes Do you worry about a steady place to live?: No In the past 12 months,have you had to go without utilities?: No Transportation Issues: No Has anyone in your support network made you feel unsafe?: No Have you or anyone in your house had to go without enough: No - Nursing Vital Signs Nursing Vital Signs: Initial Vital Signs Temperature 97.5 F 11/20/24 18:47 Pulse Rate 72 11/20/24 18:47 Respiratory Rate 20 11/20/24 18:47 Blood Pressure 121/74 11/20/24 18:47 O2 Sat by Pulse Oximetry 95 11/20/24 18:47 Pain Scale Pain Intensity 0 - Physical Exam General Appearance: no apparent distress, alert Eye Exam: PERRL/EOMI, eyes nml inspection Ears, Nose, Throat Exam: normal ENT inspection, moist mucous membranes Neck Exam: normal inspection, full range of motion Respiratory Exam: normal breath sounds, lungs clear, No respiratory distress Cardiovascular Exam: regular rate/rhythm, normal heart sounds, normal peripheral pulses Gastrointestinal/Abdomen Exam: soft, normal bowel sounds, No tenderness, No mass Back Exam: normal inspection, normal range of motion, No CVA tenderness, No vertebral tenderness Extremity Exam: normal inspection, normal range of motion, pelvis stable Neurologic Exam: alert, oriented x 3, cooperative, normal mood/affect, sensation nml, No motor deficits Skin Exam: normal color, warm, dry, No rash Lymphatic Exam: No adenopathy SpO2 Interpretation: normal O2 Delivery: Room Air - Course Nursing assessment & vital signs reviewed: Yes EKG Interpreted by Me: RATE (69), Sinus Rhythm, NORMAL AXIS, NORMAL INTERVALS, NORMAL QRS Ordered Tests: Medication Summary Discontinued Medications Generic Name Dose Route Start Last Admin Trade Name Felicia PRN Reason Stop Dose Admin Buspirone HCl 10 mg 11/20/24 23:45 11/20/24 23:54 Buspirone Hcl 5 Mg Tablet PO 12/20/24 23:44 10 mg 1XONLY RIYA Administration Buspirone HCl Confirm 11/20/24 23:50 Buspirone Hcl 5 Mg Tablet Administered 11/20/24 23:51 Dose 10 mg .ROUTE .STK-MED ONE Diazepam 5 mg 11/20/24 23:39 11/20/24 23:54 Diazepam 5 Mg Tablet PO 11/20/24 23:40 5 mg STAT ONE Administration Diazepam Confirm 11/20/24 23:47 Diazepam 5 Mg Tablet Administered 11/20/24 23:48 Dose 5 mg .ROUTE .STK-MED ONE Sodium Chloride 1,000 mls @ 999 mls/hr 11/20/24 18:50 11/20/24 20:25 Sodium Chloride 0.9% 1000 Ml IV 11/20/24 19:50 Infused .Q1H1M STA Infusion Sodium Chloride Confirm 11/20/24 19:06 Sodium Chloride 0.9% Administered 11/20/24 19:07 Dose 100 mls @ ud .ROUTE .STK-MED ONE Lactated Ringer's 1,000 mls @ 999 mls/hr 11/20/24 20:16 11/20/24 21:26 Lactated Ringers IV 11/20/24 21:16 Infused .Q1H1M ONE Infusion Lactated Ringer's Confirm 11/20/24 20:19 Lactated Ringers Administered 11/20/24 20:20 Dose 1,000 mls @ ud IV .STK-MED ONE Lab/Rad Data: Laboratory Result Diagrams 11/20/24 18:48 11/20/24 19:00 Laboratory Results 11/20/24 11/20/24 11/20/24 Range/Units 23:22 21:09 19:07 WBC (4.23-9.07) x10^3/uL RBC (4.63-6.08) x10^6/uL Hgb (13.7-17.5) g/dL Hct (40.1-51.0) % MCV (79.0-92.2) fL MCH (25.7-32.2) pg MCHC (32.3-36.5) g/dL RDW (11.6-14.4) % Plt Count (163-337) x10^3/uL MPV (9.4-12.4) fL Gran % (34.0-67.9) % Immature Gran % (Auto) (0.001-0.429) % Nucleat RBC Rel Count (0.00-0.2) % Eos # (Auto) (0.04-0.54) x10^3/uL Immature Gran # (Auto) (0.001-0.031) x10^3u/L Absolute Lymphs (auto) (1.32-3.57) x10^3/uL Absolute Monos (auto) (0.30-0.82) x10^3/uL Absolute Nucleated RBC (0.00-0.012) x10^3u/L Lymphocytes % (21.8-53.1) % Monocytes % (5.3-12.2) % Eosinophils % (0.8-7.0) % Basophils % (0.2-1.2) % Absolute Granulocytes (1.78-5.38) x10^3/uL Basophils # (0.01-0.08) x10^3/uL Sodium (135-145) mmol/L Potassium (3.5-5.1) mmol/L Chloride (98-107) mmol/L Carbon Dioxide (22-30) mmol/L Anion Gap (5-15) MEQ/L BUN (9-20) mg/dL Creatinine (0.66-1.25) mg/dL Estimated GFR ML/MIN Glucose (74-106) mg/dL Lactic Acid 3.0 H (0.4-2.0) Calcium (8.4-10.2) mg/dL Magnesium (1.6-2.3) mg/dL Total Bilirubin (0.2-1.3) mg/dL AST (17-59) U/L ALT (0-50) U/L Alkaline Phosphatase (38-126) U/L Troponin I < 0.012 (0.000-0.033) ng/mL NT-Pro-B Natriuret Pep (<300) pg/mL Serum Total Protein (6.3-8.2) g/dL Albumin (3.5-5.0) g/dL Urine Color (Yellow) Urine Appearance (Clear) Urine pH (4.6-8.0) Ur Specific [place] (1.005-1.030) Urine Protein (Negative) Urine Glucose (UA) (Negative) mg/dL Urine Ketones (Negative) Urine Blood (Negative) Urine Nitrite (Negative) Urine Bilirubin (Negative) Urine Urobilinogen (0.2) mg/dL Ur Leukocyte Esterase (Negative) U Hyaline Cast (Auto) (0-2) /LPF Urine Microscopic RBC (0-5) /HPF Urine Microscopic WBC (0-5) /HPF Ur Epithelial Cells (None Seen) /HPF Urine Bacteria (None Seen) /HPF Urine Culture Reflexed (NO) Urine Opiates Level NEGATIVE (NEGATIVE) Ur Methadone NEGATIVE (NEGATIVE) Urine Barbiturates NEGATIVE (NEGATIVE) Ur Phencyclidine (PCP) NEGATIVE (NEGATIVE) Urine Amphetamine NEGATIVE (NEGATIVE) U Benzodiazepine Level POSITIVE A (NEGATIVE) Urine Cocaine NEGATIVE (NEGATIVE) Urine Marijuana (THC) NEGATIVE (NEGATIVE) 11/20/24 11/20/24 11/20/24 Range/Units 19:07 19:00 19:00 WBC (4.23-9.07) x10^3/uL RBC (4.63-6.08) x10^6/uL Hgb (13.7-17.5) g/dL Hct (40.1-51.0) % MCV (79.0-92.2) fL MCH (25.7-32.2) pg MCHC (32.3-36.5) g/dL RDW (11.6-14.4) % Plt Count (163-337) x10^3/uL MPV (9.4-12.4) fL Gran % (34.0-67.9) % Immature Gran % (Auto) (0.001-0.429) % Nucleat RBC Rel Count (0.00-0.2) % Eos # (Auto) (0.04-0.54) x10^3/uL Immature Gran # (Auto) (0.001-0.031) x10^3u/L Absolute Lymphs (auto) (1.32-3.57) x10^3/uL Absolute Monos (auto) (0.30-0.82) x10^3/uL Absolute Nucleated RBC (0.00-0.012) x10^3u/L Lymphocytes % (21.8-53.1) % Monocytes % (5.3-12.2) % Eosinophils % (0.8-7.0) % Basophils % (0.2-1.2) % Absolute Granulocytes (1.78-5.38) x10^3/uL Basophils # (0.01-0.08) x10^3/uL Sodium 141 (135-145) mmol/L Potassium 4.0 (3.5-5.1) mmol/L Chloride 106 (98-107) mmol/L Carbon Dioxide 24 (22-30) mmol/L Anion Gap 15.0 (5-15) MEQ/L BUN 8 L (9-20) mg/dL Creatinine 1.26 H (0.66-1.25) mg/dL Estimated GFR 71.7 ML/MIN Glucose 94 (74-106) mg/dL Lactic Acid (0.4-2.0) Calcium 9.5 (8.4-10.2) mg/dL Magnesium 1.8 (1.6-2.3) mg/dL Total Bilirubin 0.70 (0.2-1.3) mg/dL AST 38 (17-59) U/L ALT 41 (0-50) U/L Alkaline Phosphatase 51 (38-126) U/L Troponin I < 0.012 (0.000-0.033) ng/mL NT-Pro-B Natriuret Pep 193 (<300) pg/mL Serum Total Protein 7.3 (6.3-8.2) g/dL Albumin 4.7 (3.5-5.0) g/dL Urine Color Yellow (Yellow) Urine Appearance Clear (Clear) Urine pH 5.5 (4.6-8.0) Ur Specific [place] <=1.005 (1.005-1.030) Urine Protein Negative (Negative) Urine Glucose (UA) Negative (Negative) mg/dL Urine Ketones Negative (Negative) Urine Blood Negative (Negative) Urine Nitrite Negative (Negative) Urine Bilirubin Negative (Negative) Urine Urobilinogen 0.2 (0.2) mg/dL Ur Leukocyte Esterase Negative (Negative) U Hyaline Cast (Auto) NONE SEEN (0-2) /LPF Urine Microscopic RBC 0-2 (0-5) /HPF Urine Microscopic WBC 0-2 (0-5) /HPF Ur Epithelial Cells None Seen (None Seen) /HPF Urine Bacteria None Seen (None Seen) /HPF Urine Culture Reflexed NO (NO) Urine Opiates Level (NEGATIVE) Ur Methadone (NEGATIVE) Urine Barbiturates (NEGATIVE) Ur Phencyclidine (PCP) (NEGATIVE) Urine Amphetamine (NEGATIVE) U Benzodiazepine Level (NEGATIVE) Urine Cocaine (NEGATIVE) Urine Marijuana (THC) (NEGATIVE) 11/20/24 11/20/24 Range/Units 19:00 18:48 WBC 5.0 (4.23-9.07) x10^3/uL RBC 5.20 (4.63-6.08) x10^6/uL Hgb 16.5 (13.7-17.5) g/dL Hct 47.8 (40.1-51.0) % MCV 91.9 (79.0-92.2) fL MCH 31.7 (25.7-32.2) pg MCHC 34.5 (32.3-36.5) g/dL RDW 11.9 (11.6-14.4) % Plt Count 261 (163-337) x10^3/uL MPV 10.1 (9.4-12.4) fL Gran % 44.4 (34.0-67.9) % Immature Gran % (Auto) 0.4 (0.001-0.429) % Nucleat RBC Rel Count 0.0 (0.00-0.2) % Eos # (Auto) 0.21 (0.04-0.54) x10^3/uL Immature Gran # (Auto) 0.02 (0.001-0.031) x10^3u/L Absolute Lymphs (auto) 1.93 (1.32-3.57) x10^3/uL Absolute Monos (auto) 0.59 (0.30-0.82) x10^3/uL Absolute Nucleated RBC 0.00 (0.00-0.012) x10^3u/L Lymphocytes % 38.6 (21.8-53.1) % Monocytes % 11.8 (5.3-12.2) % Eosinophils % 4.2 (0.8-7.0) % Basophils % 0.6 (0.2-1.2) % Absolute Granulocytes 2.22 (1.78-5.38) x10^3/uL Basophils # 0.03 (0.01-0.08) x10^3/uL Sodium (135-145) mmol/L Potassium (3.5-5.1) mmol/L Chloride (98-107) mmol/L Carbon Dioxide (22-30) mmol/L Anion Gap (5-15) MEQ/L BUN (9-20) mg/dL Creatinine (0.66-1.25) mg/dL Estimated GFR ML/MIN Glucose (74-106) mg/dL Lactic Acid 3.3 H (0.4-2.0) Calcium (8.4-10.2) mg/dL Magnesium (1.6-2.3) mg/dL Total Bilirubin (0.2-1.3) mg/dL AST (17-59) U/L ALT (0-50) U/L Alkaline Phosphatase (38-126) U/L Troponin I (0.000-0.033) ng/mL NT-Pro-B Natriuret Pep (<300) pg/mL Serum Total Protein (6.3-8.2) g/dL Albumin (3.5-5.0) g/dL Urine Color (Yellow) Urine Appearance (Clear) Urine pH (4.6-8.0) Ur Specific [place] (1.005-1.030) Urine Protein (Negative) Urine Glucose (UA) (Negative) mg/dL Urine Ketones (Negative) Urine Blood (Negative) Urine Nitrite (Negative) Urine Bilirubin (Negative) Urine Urobilinogen (0.2) mg/dL Ur Leukocyte Esterase (Negative) U Hyaline Cast (Auto) (0-2) /LPF Urine Microscopic RBC (0-5) /HPF Urine Microscopic WBC (0-5) /HPF Ur Epithelial Cells (None Seen) /HPF Urine Bacteria (None Seen) /HPF Urine Culture Reflexed (NO) Urine Opiates Level (NEGATIVE) Ur Methadone (NEGATIVE) Urine Barbiturates (NEGATIVE) Ur Phencyclidine (PCP) (NEGATIVE) Urine Amphetamine (NEGATIVE) U Benzodiazepine Level (NEGATIVE) Urine Cocaine (NEGATIVE) Urine Marijuana (THC) (NEGATIVE) - Progress Progress: improved Progress Note: 44-year-old male presents to our ED feeling unwell. Patient was concerned with low blood pressure. Patient reported he was feeling unwell at the time that his blood pressure was observed to be low. Upon arrival to our ED patient's blood pressure systolic was in the 120s. However while patient was in our ED we observed patient's heart rate to increase into the 60s and then decrease into the low 40s. While in the low 40s patient became symptomatic. We obtained an EKG which confirmed a heart rate of 42. Patient's blood pressure however remained stable but lower than patient's baseline. Additionally lab workup was obtained. Patient's creatinine increased to 1.26 previously 0.8. Patient's lactic acid was 3.3. Patient received 1.5 L of fluids. Lactic acid improved from 3.3-3. Patient likely dehydrated will require additional fluids. However in light of patient's symptomatic bradycardia we contacted [facility] as we do not have cardiology services available at this time. We spoke to transfer center. Patient was in auto excepted at 11:02 PM. The accepting physician is Duy Granados. Plan of care discussed with patient and his who is at the bedside. They agree to transfer to [facility] for further evaluation and treatment. Portions of this note were created with voice recognition technology. There may be grammatical, spelling, punctuation or sound alike errors Complexity of problem addresses moderate acute complicated. No critical care time. Complexity of data reviewed and analyzed is extensive. Test ordered chest reviewed results analyzed and correlated clinically with history and physical exam. Management discussed with transfer center. Accepting physician Dr. Mireya Gordillo. Risk of complication and or risk of morbidity/mortality of patient management is high. Patient requires transfer to higher level of care. Vital stable. Time spent to transfer patient is approximately 20 minutes. Plan of care established for shared decision making. No social determinants of health present to impede follow-up. Portions of this note were created with voice recognition technology. There may be grammatical, spelling, punctuation or sound alike errors 11/20/24 23:03 Counseled pt/family regarding: lab results, diagnosis - Departure Departure Disposition: Home Clinical Impression: Acute renal injury, Lactic acidosis, Symptomatic bradycardia Condition: Stable Critical Care Time: No Referrals: OLI TILLEY NP [Primary Care Provider] - Follow up/PCP as directed
[2024-11-20 19:03] VITALS: TEMP 97.5
[2024-11-20 19:05] LABS: Absolute Neutrophil Ct (ANC) 2.22 x10^3/uL (1.78-5.38); BASOPHIL % 0.6 % (0.2-1.2); Basophil (Absolute #) 0.03 x10^3/uL (0.01-0.08); Eosinophil % 4.2 % (0.8-7.0); Eosinophil (Absolute #) 0.21 x10^3/uL (0.04-0.54); Hematocrit 47.8 % (40.1-51.0); Hemoglobin 16.5 g/dL (13.7-17.5); IMMATURE GRAN # 0.02 x10^3u/L (0.001-0.031); IMMATURE GRAN % 0.4 % (0.001-0.429); Lymphocyte (Absolute #) 1.93 x10^3/uL (1.32-3.57); Lymphocytes % 38.6 % (21.8-53.1); Mean Cell Volume 91.9 fL (79.0-92.2); Mean Corpuscular Hemoglobin 31.7 pg (25.7-32.2); Mean Corpuscular Hgb Concent. 34.5 g/dL (32.3-36.5); Mean Platelet Volume 10.1 fL (9.4-12.4); Monocyte (Absolute #) 0.59 x10^3/uL (0.30-0.82); Monocytes % 11.8 % (5.3-12.2); Neutrophil % 44.4 % (34.0-67.9); Platelet Count 261 x10^3/uL (163-337); Red Cell Distribution Width 11.9 % (11.6-14.4)
[2024-11-20] MEDS ORDERED: Sodium Chloride 0.9% 100 ML ONE (19:06)
[2024-11-20] MEDS: Sodium Chloride 0.9% 1000 ML 1,000 ML IV STA (19:07)
[2024-11-20 19:29] LABS: Appearance Clear (Clear); Bacteria None Seen /HPF (None Seen); Bilirubin Negative (Negative); Blood Negative (Negative); Epithelial Cells None Seen /HPF (None Seen); Glucose, Urine Negative (Negative); Hyaline Casts NONE SEEN /LPF (0-2); Ketones Negative (Negative); Leukocyte Esterase Negative (Negative); Nitrite Negative (Negative); Ph 5.5 (4.6-8.0); Protein,Urine Dip Negative (Negative); RBC 0-2 /HPF (0-5); Specific Gravity <=1.005 (1.005-1.030); Urobilinogen 0.2 mg/dL (0.2); WBC 0-2 /HPF (0-5)
[2024-11-20 19:30] LABS: ALBUMIN 4.7 g/dL (3.5-5.0); BILIRUBIN,TOTAL 0.7 mg/dL (0.2-1.3); Calcium 9.5 mg/dL (8.4-10.2); Creatinine 1 1.26 mg/dL (0.66-1.25); EST GLOMERULAR FILTRATION RATE 71.7 ML/MIN; MAGNESIUM 1.8 mg/dL (1.6-2.3); Total Protein 7.3 g/dL (6.3-8.2)
[2024-11-20 19:37] LABS: Amphetamine,Urine NEGATIVE (NEGATIVE); Barbiturate,Urine NEGATIVE (NEGATIVE); Benzodiazepine,Urine POSITIVE (NEGATIVE); Cocaine,Urine NEGATIVE (NEGATIVE); Methadone,Urine NEGATIVE (NEGATIVE); Opiate,Urine NEGATIVE (NEGATIVE); PCP,Urine NEGATIVE (NEGATIVE); THC,Urine NEGATIVE (NEGATIVE)
[2024-11-20] MEDS ORDERED: Lactated Ringers 1,000 ML IV ONE (20:19)
[2024-11-20] MEDS: Lactated Ringers 1,000 ML IV ONE (20:20)
[2024-11-20] MEDS ORDERED: Valium 5 MG ONE (23:47)
[2024-11-20] MEDS ORDERED: BUSPAR 5 MG ONE (23:50)
[2024-11-20] MEDS: Valium 5 MG PO ONE (23:54)
[2024-11-20] MEDS: BUSPAR 5 MG PO SCH (23:54)
[2024-11-21 01:03] VITALS: PULSE 50
[2024-11-21 02:18] VITALS: BP 142/84; RESP 20; O2SAT 91
== END 2024-11-21 02:59 | disposition short-term general hospital (02) ==
LOC: ED 18:29
DX: N17.9 Acute kidney failure, unspecified (principal); E87.20 Acidosis, unspecified; R00.1 Bradycardia, unspecified; I95.9 Hypotension, unspecified; I10 Essential (primary) hypertension; Z79.899 Other long term (current) drug therapy
CPT/HCPCS: 36415; 80053; 80307; 81001; 83605; 83735; 83880; 84484; 85025; 93005; 93041; 94760; 96360; 96361; 99285; A9270-GY

== ENCOUNTER 2025-05-29 23:29 | Emergency (ER) | payer OTHER ==
[2025-05-29 23:42] VITALS: TEMP 98.5
--- NOTE | 2025-05-29 23:50 | ERPHSYRPT ---
- History of Present Illness Source: patient Exam Limitations: no limitations Patient Subjective Stated Complaint: "I took a bunch of pills" Triage Nursing Assessment: Overdose on Metoprolol, Abilify, Losartan, Buspar, and Amolodipine Physician History: Patient took many medications BuSpar and losartanMetoprolol and AbilifyAnd Amlodipine. He said he was not trying to kill himself but I do not know if I believe that.His vital signs were stable. He was a little bit somnolent at the time and was not a very good historianEvidentlyThreatened to hurt himself earlier and then left home and the police were out looking for him. He then called 911 and said that he had taken a bunch of pills.Police were involved and they brought him in by EMS.Poison control was notified Allergies/Adverse Reactions: No Known Drug Allergies Allergy (Verified 05/29/25 23:46) Home Medications: Losartan Potassium 50 mg [Cozaar 50 MG] 100 mg PO EVENING MEAL 04/06/24 [History] Diazepam 5 mg [Valium 5 MG] 5 mg PO BID 08/08/24 [History] Metoprolol Succinate 50 mg [Toprol Xl 50 MG] 25 mg PO BID 08/08/24 [History] Buspirone HCl 5 mg [Buspar 5 mg] 10 mg PO BID 11/20/24 [History] Lurasidone HCl [Latuda] 20 mg PO DAILY 05/30/25 [History] Hx Tetanus, Diphtheria Vaccination/Date Given: (unknown) Hx Influenza Vaccination/Date Given: (unknown) Hx Pneumococcal Vaccination/Date Given: (unknown) Travel Risk - International Travel Have you traveled outside of the country in past 3 weeks: No - Emerging Infectious Disease Are you exhibiting symptoms associated with any current EIDs: No - Past Medical History Pertinent Past Medical History: Yes Neurological History: No Pertinent History ENT History: No Pertinent History Cardiac History: Hypertension Respiratory History: No Pertinent History Endocrine Medical History: Other Musculoskeletal History: Other GI Medical History: No Pertinent History History: Kidney Cancer Psycho-Social History: Anxiety Male Reproductive Disorders: No Pertinent History Other Medical History: STAGE 2 RENAL CELL CA WITH PARTIAL NEPHRECTOMY 13 YEARS AGO. NO CHEMO OR RADIATION - Past Surgical History Past Surgical History: Yes Neuro Surgical History: No Pertinent History Cardiac: No Pertinent History Respiratory: No Pertinent History Gastrointestinal: No Pertinent History Genitourinary: Kidney Surgery Musculoskeletal: No Pertinent History Male Surgical History: No Pertinent History Other Surgical History: partial nephrectomy left kidney - Social History Smoking Status: Never smoker Exposure to second hand smoke: No Drug Use: none - Social Determinants of Health Will the patient participate in the screening: Yes Do you worry about a steady place to live?: No Do you have any problems with any of the following?: No known problems In the past 12 months,have you had to go without utilities?: No Transportation Issues: No Has anyone in your support network made you feel unsafe?: No Have you or anyone in your house had to go w/o enough food: No - Review of Systems Constitutional: Other (Patient is really uncooperative for review of systems at this time) - Nursing Vital Signs Nursing Vital Signs: Initial Vital Signs Temperature 98.5 F 05/29/25 23:31 Pulse Rate 73 05/29/25 23:31 Respiratory Rate 20 05/29/25 23:31 O2 Sat by Pulse Oximetry 94 L 05/29/25 23:31 Pain Scale Pain Intensity 0 - Physical Exam General Appearance: no apparent distress, other (Somnolent) Eyes, Ears, Nose, Throat Exam: normal ENT inspection Neck Exam: normal inspection Respiratory Exam: normal breath sounds, lungs clear, No chest tenderness Cardiovascular Exam: regular rate/rhythm, normal heart sounds Gastrointestinal/Abdominal Exam: soft, normal bowel sounds, tenderness Neurological Exam: responds to pain Appearance: appropriate appearance, No appropriate insight Behavior/Eye Contact/Speech: intoxicated appearance Skin Exam: normal color, warm, dry SpO2: 94 - Course Nursing assessment & vital signs reviewed: Yes EKG Interpreted by Me: RATE, NORMAL AXIS, NORMAL INTERVALS, NORMAL QRS, NORMAL ST-T Ordered Tests: Active Orders 24 hr Category Date Time Status EKG-ER Only STAT Care 05/30/25 00:13 Active EKG-ER Only STAT Care 05/30/25 02:00 Active ACETAMINOPHEN Stat Lab 05/30/25 00:20 Completed Alcohol [ETHYL ALCOHOL] Stat Lab 05/30/25 03:42 Completed CBC W DIFF Stat Lab 05/30/25 00:20 Completed CK-Creatinine Phosphokinase Stat Lab 05/30/25 00:20 Completed CMP Stat Lab 05/30/25 00:20 Completed ETHYL ALCOHOL Stat Lab 05/30/25 00:20 Completed Lactic Acid Stat Lab 05/30/25 00:30 Completed SALICYLATE Stat Lab 05/30/25 00:20 Completed Urine Triage Profile Stat Lab 05/30/25 01:36 Completed Medication Summary Discontinued Medications Generic Name Dose Route Start Last Admin Trade Name Felicia PRN Reason Stop Dose Admin Sodium Chloride 1,000 mls @ 999 mls/hr 05/30/25 00:16 05/30/25 01:24 Sodium Chloride 0.9% 1000 Ml IV 05/30/25 01:16 Infused .Q1H1M STA Infusion Sodium Chloride Confirm 05/30/25 00:23 Sodium Chloride 0.9% 1000 Ml Administered 05/30/25 00:24 Dose 1,000 mls @ ud .ROUTE .STK-MED ONE Lab/Rad Data: Laboratory Result Diagrams 05/30/25 00:20 05/30/25 00:20 Laboratory Results 05/30/25 05/30/25 05/30/25 Range/Units 03:42 01:36 00:30 WBC (4.23-9.07) x10^3/uL RBC (4.63-6.08) x10^6/uL Hgb (13.7-17.5) g/dL Hct (40.1-51.0) % MCV (79.0-92.2) fL MCH (25.7-32.2) pg MCHC (32.3-36.5) g/dL RDW (11.6-14.4) % Plt Count (163-337) x10^3/uL MPV (9.4-12.4) fL Gran % (34.0-67.9) % Immature Gran % (Auto) (0.001-0.429) % Nucleat RBC Rel Count (0.00-0.2) % Eos # (Auto) (0.04-0.54) x10^3/uL Immature Gran # (Auto) (0.001-0.031) x10^3u/L Absolute Lymphs (auto) (1.32-3.57) x10^3/uL Absolute Monos (auto) (0.30-0.82) x10^3/uL Absolute Nucleated RBC (0.00-0.012) x10^3u/L Lymphocytes % (21.8-53.1) % Monocytes % (5.3-12.2) % Eosinophils % (0.8-7.0) % Basophils % (0.2-1.2) % Absolute Granulocytes (1.78-5.38) x10^3/uL Basophils # (0.01-0.08) x10^3/uL Sodium (135-145) mmol/L Potassium (3.5-5.1) mmol/L Chloride (98-107) mmol/L Carbon Dioxide (22-30) mmol/L Anion Gap (5-15) MEQ/L BUN (9-20) mg/dL Creatinine (0.66-1.25) mg/dL Estimated GFR ML/MIN Glucose (74-106) mg/dL Lactic Acid 2.4 H (0.4-2.0) Calcium (8.4-10.2) mg/dL Total Bilirubin (0.2-1.3) mg/dL AST (17-59) U/L ALT (0-50) U/L Alkaline Phosphatase (38-126) U/L Creatine Kinase (55-170) U/L Serum Total Protein (6.3-8.2) g/dL Albumin (3.5-5.0) g/dL Salicylates (2-20) mg/dL Urine Opiates Level NEGATIVE (NEGATIVE) Ur Methadone NEGATIVE (NEGATIVE) Acetaminophen (10-30) ug/ml Urine Barbiturates NEGATIVE (NEGATIVE) Ur Phencyclidine (PCP) NEGATIVE (NEGATIVE) Urine Amphetamine NEGATIVE (NEGATIVE) U Benzodiazepine Level POSITIVE A (NEGATIVE) Urine Cocaine NEGATIVE (NEGATIVE) Urine Marijuana (THC) NEGATIVE (NEGATIVE) Ethyl Alcohol 104 H (0-10) mg/dL 05/30/25 05/30/25 Range/Units 00:20 00:20 WBC 13.0 H (4.23-9.07) x10^3/uL RBC 5.62 (4.63-6.08) x10^6/uL Hgb 17.7 H (13.7-17.5) g/dL Hct 51.5 H (40.1-51.0) % MCV 91.6 (79.0-92.2) fL MCH 31.5 (25.7-32.2) pg MCHC 34.4 (32.3-36.5) g/dL RDW 12.2 (11.6-14.4) % Plt Count 296 (163-337) x10^3/uL MPV 10.1 (9.4-12.4) fL Gran % 65.8 (34.0-67.9) % Immature Gran % (Auto) 0.2 (0.001-0.429) % Nucleat RBC Rel Count 0.0 (0.00-0.2) % Eos # (Auto) 0.20 (0.04-0.54) x10^3/uL Immature Gran # (Auto) 0.03 (0.001-0.031) x10^3u/L Absolute Lymphs (auto) 2.99 (1.32-3.57) x10^3/uL Absolute Monos (auto) 1.14 H (0.30-0.82) x10^3/uL Absolute Nucleated RBC 0.00 (0.00-0.012) x10^3u/L Lymphocytes % 23.1 (21.8-53.1) % Monocytes % 8.8 (5.3-12.2) % Eosinophils % 1.5 (0.8-7.0) % Basophils % 0.6 (0.2-1.2) % Absolute Granulocytes 8.52 H (1.78-5.38) x10^3/uL Basophils # 0.08 (0.01-0.08) x10^3/uL Sodium 143 (135-145) mmol/L Potassium 4.0 (3.5-5.1) mmol/L Chloride 107 (98-107) mmol/L Carbon Dioxide 22 (22-30) mmol/L Anion Gap 17.9 H (5-15) MEQ/L BUN 12 (9-20) mg/dL Creatinine 1.20 (0.66-1.25) mg/dL Estimated GFR 75.5 ML/MIN Glucose 122 H (74-106) mg/dL Lactic Acid (0.4-2.0) Calcium 9.3 (8.4-10.2) mg/dL Total Bilirubin 0.20 (0.2-1.3) mg/dL AST 31 (17-59) U/L ALT 36 (0-50) U/L Alkaline Phosphatase 63 (38-126) U/L Creatine Kinase 87 (55-170) U/L Serum Total Protein 7.4 (6.3-8.2) g/dL Albumin 4.3 (3.5-5.0) g/dL Salicylates < 1.0 L (2-20) mg/dL Urine Opiates Level (NEGATIVE) Ur Methadone (NEGATIVE) Acetaminophen < 10 L (10-30) ug/ml Urine Barbiturates (NEGATIVE) Ur Phencyclidine (PCP) (NEGATIVE) Urine Amphetamine (NEGATIVE) U Benzodiazepine Level (NEGATIVE) Urine Cocaine (NEGATIVE) Urine Marijuana (THC) (NEGATIVE) Ethyl Alcohol 162 H (0-10) mg/dL - Progress Progress Note: Poison control was notified. We got all the labs that they requested and are monitoring the patient they advised to monitor for about 10 hours.An JOHN was petition for 10 hours.Patient was accepted at [facility]. He was stable throughout stay. He was medically cleared 05/30/25 00:33 05/30/25 07:02 - Departure Departure Disposition: Transfer Clinical Impression: Drug overdose, intentional Condition: Stable Critical Care Time: No Referrals: OLI TILLEY NP [Primary Care Provider, [facility]] - Follow up/PCP as directed
[2025-05-30 00:39] LABS: BASOPHIL % 0.6 % (0.2-1.2); Basophil (Absolute #) 0.08 x10^3/uL (0.01-0.08); Eosinophil (Absolute #) 0.20 x10^3/uL (0.04-0.54); Hematocrit 51.5 % (40.1-51.0); Hemoglobin 17.7 g/dL (13.7-17.5); IMMATURE GRAN # 0.03 x10^3u/L (0.001-0.031); IMMATURE GRAN % 0.2 % (0.001-0.429); Lymphocyte (Absolute #) 2.99 x10^3/uL (1.32-3.57); Mean Corpuscular Hemoglobin 31.5 pg (25.7-32.2); Mean Corpuscular Hgb Concent. 34.4 g/dL (32.3-36.5); Monocyte (Absolute #) 1.14 x10^3/uL (0.30-0.82); NUCLEATED RBC # 0.00 x10^3u/L (0.00-0.012); NUCLEATED RBC % 0.0 % (0.00-0.2); Platelet Count 296 x10^3/uL (163-337); Red Blood Count 5.62 x10^6/uL (4.63-6.08); White Blood Count 13.0 x10^3/uL (4.23-9.07)
[2025-05-30 00:53] LABS: CK-Creatinine Phosphokinase 87 U/L (55-170); Calcium 9.3 mg/dL (8.4-10.2); Carbon Dioxide 22 mmol/L (22-30); Creatinine 1 1.20 mg/dL (0.66-1.25); EST GLOMERULAR FILTRATION RATE 75.5 ML/MIN; ETHYL ALCOHOL 162 mg/dL (0-10); Glucose 122 mg/dL (74-106); Potassium 4.0 mmol/L (3.5-5.1); SGOT/AST 31 U/L (17-59); SGPT/ALT 36 U/L (0-50); Total Protein 7.4 g/dL (6.3-8.2)
[2025-05-30 02:05] LABS: Amphetamine,Urine NEGATIVE (NEGATIVE); Barbiturate,Urine NEGATIVE (NEGATIVE); Benzodiazepine,Urine POSITIVE (NEGATIVE); Cocaine,Urine NEGATIVE (NEGATIVE); Methadone,Urine NEGATIVE (NEGATIVE); Opiate,Urine NEGATIVE (NEGATIVE); PCP,Urine NEGATIVE (NEGATIVE); THC,Urine NEGATIVE (NEGATIVE)
[2025-05-30 07:04] VITALS: O2SAT 94
[2025-05-30 08:11] LABS: BASOPHIL % 0.3 % (0.2-1.2); Basophil (Absolute #) 0.04 x10^3/uL (0.01-0.08); Eosinophil (Absolute #) 0.13 x10^3/uL (0.04-0.54); Hematocrit 51.9 % (40.1-51.0); Hemoglobin 17.8 g/dL (13.7-17.5); IMMATURE GRAN # 0.03 x10^3u/L (0.001-0.031); IMMATURE GRAN % 0.3 % (0.001-0.429); Lymphocyte (Absolute #) 1.65 x10^3/uL (1.32-3.57); Mean Corpuscular Hemoglobin 31.8 pg (25.7-32.2); Mean Corpuscular Hgb Concent. 34.3 g/dL (32.3-36.5); Monocyte (Absolute #) 1.16 x10^3/uL (0.30-0.82); NUCLEATED RBC # 0.00 x10^3u/L (0.00-0.012); NUCLEATED RBC % 0.0 % (0.00-0.2); Platelet Count 265 x10^3/uL (163-337); Red Blood Count 5.60 x10^6/uL (4.63-6.08); White Blood Count 11.8 x10^3/uL (4.23-9.07)
[2025-05-30 08:28] LABS: Calcium 8.9 mg/dL (8.4-10.2); Carbon Dioxide 23.0 mmol/L (22-30); Creatinine 1 1.3 mg/dL (0.66-1.25); EST GLOMERULAR FILTRATION RATE 68.6 ML/MIN; Glucose 115.0 mg/dL (74-106); Potassium 4.2 mmol/L (3.5-5.1); SGOT/AST 29.0 U/L (17-59); SGPT/ALT 33.0 U/L (0-50); Total Protein 7.1 g/dL (6.3-8.2)
[2025-05-30 09:34] VITALS: BP 134/109; PULSE 68; RESP 17
== END 2025-05-30 09:30 ==
LOC: ED 23:29
DX: T43.592A Poisoning by other antipsychotics and neuroleptics, intentional self-harm, initial encounter (principal); T46.5X2A Poisoning by other antihypertensive drugs, intentional self-harm, initial encounter; T44.7X2A Poisoning by beta-adrenoreceptor antagonists, intentional self-harm, initial encounter; T46.1X2A Poisoning by calcium-channel blockers, intentional self-harm, initial encounter; I10 Essential (primary) hypertension; Z79.899 Other long term (current) drug therapy